=== PATIENT | female | born 1955 | race Caucasian/White ===

== ENCOUNTER → 2017-02-15 | Outpatient (CLI) | payer OTHER ==
[2016-12-21 17:47] VITALS: BP 94/61
[2017-02-15 13:48] LABS: CREATININE 1.19 mg/dL (0.55-1.02)
--- NOTE | 2017-02-15 15:54 | MRI ---
HISTORY: Cervicalgia, radiculopathy, prior surgery Study: MRI cervical spine with and without contrast Comparison: MRI 05/24/2013 Technique: Multiplanar multisequence MRI of the cervical spine was obtained utilizing standard depar tmental protocol. Findings: The exam is limited overall by motion artifact as well as artifact emanating from the patient's cerv ical fusion hardware. Overall alignment is normal. There are postsurgical changes at C4 through C6. Findings suggest revision since prior study is the changes were previously at C4-C5 there appears to be hardware removal at C4. There does not appear to be significant abnormal postsurgical enhancemen t at the C4 thru C6 levels. There is some contrast seen within the venous plexus posteriorly at sammy ral levels, within normal limits. No evidence of acute osseous abnormality or abnormal signal within the cord. The cervical cranial junction is unremarkable as is the visualized brain parenchyma. C2 -- C3: No stenosis or abnormal enhancement identified C3 -- C4: No stenosis or abnormal enhancement identified C4 -- C5: No stenosis or abnormal enhancement identified C5 -- C6: No stenosis or abnormal enhancement identified C6 -- C7: No stenosis or abnormal enhancement identified C7 -- T1: No stenosis or abnormal enhancement identified IMPRESSION: Postsurgical changes spanning C4 through C6 as discussed without evidence of significant stenosis or abnormal enhancement. Reported By:
== END ==
LOC: RAD 13:17
PROVIDERS: ATTEND Anesthesiology Pain Medicine
DX: M54.2 Cervicalgia (principal); M54.12 Radiculopathy, cervical region
CPT/HCPCS: 36415; 72156; 82565; 84520

== ENCOUNTER → 2017-05-11 | Outpatient (CLI) | payer OTHER, MEDICAID ==
[2016-12-21 17:47] VITALS: BP 94/61
--- NOTE | 2017-05-11 15:14 | RAD ---
HISTORY: Shortness of breath, COPD. Study: PA and lateral chest. Comparison: Chest x-ray dated July 17, 2012. Findings: The trachea is midline. The cardiac silhouette is unremarkable. Calcification of the aortic knob. T he lungs are clear without focal infiltrate or effusion. The bony thorax unchanged. IMPRESSION: 1. No acute cardiopulmonary disease. Reported By:
== END ==
LOC: RAD 14:34
PROVIDERS: ATTEND Nurse Practitioner Family
DX: J44.1 Chronic obstructive pulmonary disease with (acute) exacerbation (principal)
CPT/HCPCS: 71020

== ENCOUNTER → 2017-06-29 | Outpatient (CLI) | payer OTHER, MEDICAID ==
[2016-12-21 17:47] VITALS: BP 94/61
== END ==
LOC: RAD 13:18
PROVIDERS: ATTEND Internal Medicine Cardiovascular Disease
DX: I25.10 Atherosclerotic heart disease of native coronary artery without angina pectoris (principal)
CPT/HCPCS: 93306

== ENCOUNTER → 2017-08-15 | Outpatient (CLI) | payer OTHER, MEDICAID ==
[2016-12-21 17:47] VITALS: BP 94/61
[~2017-08-15] MED LIST: LEXISCAN IV ONE
== END ==
LOC: RAD 09:15
PROVIDERS: ATTEND Physician Assistant
DX: I25.10 Atherosclerotic heart disease of native coronary artery without angina pectoris (principal)
CPT/HCPCS: 78452; 93017; A4222; A9502; J2785

== ENCOUNTER → 2018-04-19 | Outpatient (CLI) | payer OTHER, MEDICAID ==
[2016-12-21 17:47] VITALS: BP 94/61
[2018-04-19 15:32] LABS: CREATININE 1.21 mg/dL (0.55-1.02)
--- NOTE | 2018-04-19 22:15 | MRI ---
HISTORY: Lumbar radiculopathy. Low back pain with numbness and pain in legs. Study: MR lumbar spine with and without IV contrast. Comparison: None. Technique: Multiplanar multi-sequence MRI of the lumbar spine obtained both prior to and after the un eventful administration of 20 cc of Omniscan intravenous contrast. Findings: The lumbar spine demonstrates normal sagittal alignment with multilevel degenerative disc d isease. There are Modic endplate changes at the level of L2-L3 without abnormal enhancement on postco ntrast imaging. The conus of the cord terminates normally at the level of T12-L1. There are fatty at rophic changes of the posterior paraspinal musculature most notable below the level of L2-L3. T12 -- L1: No significant degenerative disc disease or spinal canal/neural foraminal narrowing. L1 -- L2: Disc bulge with mild ligamentum flavum hypertrophy and facet joint arthropathy. There is mi ld narrowing of the neural foramen on the right and of both lateral recesses. L2 -- L3: Disc bulge with disc space narrowing and Modic endplate changes, right greater than left. T here is ligamentum flavum hypertrophy and facet joint arthropathy, right greater than left. Findings result in mild neural foraminal narrowing on the left and moderate to severe neural foraminal narrowi ng on the right. There is narrowing of both lateral recesses, right greater than left, with impingeme nt of the traversing L3 nerve roots on the right. The AP diameter of the spinal canal on the right me asures 4 mm. L3 -- L4: Disc bulge which in combination with bilateral ligamentum flavum hypertrophy and facet join t arthropathy results in severe spinal canal narrowing, right greater than left. The AP diameter of t he central spinal canal measures 4.5 mm. There is crowding of the nerve roots with likely nerve root impingement on the right. Minimal CSF is observed at this level. There is mild bilateral neural naveed inal narrowing. L4 -- L5: Disc bulge in combination with bilateral ligamentum flavum hypertrophy and facet joint arth ropathy results in mild narrowing of the lateral recesses and neural foramina bilaterally. L5 -- S1: Mild disc desiccation and right foraminal disc protrusion which results in mild neural fora cynthia narrowing on the right. Small focus of T2 hyperintensity is noted in the region of disc protrus ion compatible with an annular fissure. IMPRESSION: Multilevel degenerative disc disease most severe at L2-L3 and L3-L4 where there is significant spinal canal and neural foraminal narrowing as above. Fatty atrophic changes of the posterior paraspinal musculature below the level of L2-L3. Reported By:
== END | disposition home or self-care (01) | DRG 552 ==
LOC: RAD 15:04
PROVIDERS: ATTEND Anesthesiology Pain Medicine
DX: M54.16 Radiculopathy, lumbar region (principal); M54.5 Low back pain; M51.36 Other intervertebral disc degeneration, lumbar region
CPT/HCPCS: 36415; 72158; 82565; 84520

== ENCOUNTER 2021-08-13 13:51 | Observation (INO) ==
--- NOTE | 2021-08-13 14:15 | DR.GENAD ---
HPI Time Seen Time Seen by Provider: 08/13/21 14:10 Complaint/Symptoms Chief Complaint Doctors Comments: 65 y/o female brought in for evaluation by EMS. PT has been having generalized weakness this am, cannot stand easily or ambulate. Denies any headache or trauma. Denies recent illness - no fever, c hills, cough, N/V/D, or urinary issues. Has weakness of both legs. Pt has been having some muscles twitching, remains awake and alert, no true seizure activity. Daughter encouraged her to come in for evaluation. Pt with a h/o dementia, recent h/o lung ca, awaiting further evaluation. COVID-19 Coronavirus risk:travel/contact w/high risk person: No Has patient experienced Coronavirus symptoms: No Nurses notes reviewed Nurses Notes Review: Yes Source History Provided: Patient and EMS Mode of Arrival Mode of Arrival: EMS Timing Came on: Gradually Duration Duration: Since Onset How lon Duration: Days Severity Severity: Mild Modifying Factors Worsens:: nothing Improves:: nothing PMH PMH Past Medical History: Arthritis, COPD, Depression, Diabetes, Dyslipidemia, GERD, Hypertension, [place] and Sleep Apnea Past Surgical History: Yes Surgical History: Hysterectomy and Ortho Surgery Family History Family Medical History: Diabetes Mellitus, Cancer and Hypertension Social History Do you use any recreational Drugs:: No ROS Review of Systems Constitutional: Weakness; negative Chills and Fever Eyes: No Symptoms Reported; negative Blurred Vision and Diplopia ENTM: No Symptoms Reported Respiratoy: No Symptoms Reported Cardiovascular: No Symptoms Reported Gastrointestinal/Abdominal: No Symptoms Reported Genitourinary: No Symptoms Reported Neurological: Tremors Musculoskeletal: No Symptoms Reported Integumentary: No Symptoms Reported Hematologic/Lymphatic: No Symptoms Reported Endocrine: No Symptoms Reported Psychiatric: No Symptoms Reported All Other Systems: Reviewed and Negative PE Vital Signs Vitals: Temperature 100.6 F Pulse Rate 121 Respiratory Rate 31 Blood Pressure [Left Arm] 115/68 Blood Pressure 113/63 O2 Sat by Pulse Oximetry 90 General Limitations: No Limitations General Appearance: Alert and In No Apparent Distress Head Head Exam: Normal Inspection, Atraumatic and Normocephalic Eyes Eye exam: Normal Appearance and PERRL ENT ENT Exam: Normal Exam Throat Exam: Normal Inspection Neck Neck Exam: Normal Inspection and Full ROM; negative Meningismus Chest Chest Inspection: Normal Inspection Respiratory Respiratory Exam: Normal Lung Sounds Bilat; negative Accessory Muscle Use and Respiratory Distress Respiratory Exam: Bilateral: Clear to Auscultation Cardiovascular Cardiovascular Exam: Regular Rate, Normal Rhythm and Normal Heart Sounds Abdominal Exam Abdominal Exam: Normal Inspection and Normal Bowel Sounds; negative Tenderness Extremities Extremities Exam: Normal Inspection; negative Edema Neurologic Neurological Exam: Alert and Other (+ weakness of bilateral lower exts, LLE > RLE) Psychiatric Psychiatric Exam: Normal Affect Skin Skin Exam: Warm and Dry MDM Differential Diagnosis Differential Diagnosis: Infection, CVA, electrolyte abnormalites, recent lung ca, possible mets. COURSE Treatment Treatment: 65 y/o female, having weakness of her legs, twitching. W/u initiated. 1620 - CBC, Chemistries acceptable. CT of the head shows probable lytic, probable metastatic lesions of left skull. Pt has appt next month to establish with pulmonary for possible ca. Deserves admission, quicker w/u as now she has bilateral lower ext weakness. possible mets. Also has a UTI - given IV rocephin. Added lactic acid, blood cultures, as pt is spiking a fever. No beds available for transfer. Discussed with DR. Esparza, hospitalist. Will admit. ROR Labs Reviewed Laboratory Results Reviewed?: Yes Result Diagrams: 08/13/21 14:54 08/13/21 14:54 Laboratory: WBC 12.1 X10^3/uL (3.6-10.0) H 08/13/21 14:54 RBC 4.13 X10^6/uL (3.5-5.4) 08/13/21 14:54 Hgb 11.4 g/dL (12.0-16.0) L 08/13/21 14:54 Hct 35.7 % (36.0-47.0) L 08/13/21 14:54 MCV 86.4 fL (80.0-100.0) 08/13/21 14:54 MCH 27.5 pg (27.0-34.0) 08/13/21 14:54 MCHC 31.9 g/dL (33.0-35.0) L 08/13/21 14:54 RDW 15.8 % (11.6-16.5) 08/13/21 14:54 Plt Count 267 X10^3/uL (150.0-450.0) 08/13/21 14:54 MPV 8.2 fL (7.4-11.0) 08/13/21 14:54 Neut % (Auto) 85.4 % (42.0-75.0) H 08/13/21 14:54 Lymph % (Auto) 6.9 % (21.0-51.0) L 08/13/21 14:54 [place] % (Auto) 5.9 % (0.0-13.0) 08/13/21 14:54 Eos % (Auto) 0.9 % (0.9-2.9) 08/13/21 14:54 Baso % (Auto) 0.9 % (0.2-1.0) 08/13/21 14:54 Neut # (Auto) 10.3 x10^3/uL (2.2-4.8) H 08/13/21 14:54 Lymph # (Auto) 0.8 X10^3/uL (1.3-2.9) L 08/13/21 14:54 [place] # (Auto) 0.7 x10^3/uL (0.3-0.8) 08/13/21 14:54 Eos # (Auto) 0.1 x10^3/uL (0.0-0.2) 08/13/21 14:54 Baso # (Auto) 0.1 X10^3/uL (0.0-0.1) 08/13/21 14:54 Absolute Nucleated RBC 0.0 /100WBC 08/13/21 14:54 Sodium 135 mmol/L (136-145) L 08/13/21 14:54 Corrected Sodium 136 mmol/L (136-145) 08/13/21 14:54 Potassium 4.2 mmol/L (3.5-5.1) 08/13/21 14:54 Chloride 94 mmol/L (98-107) L 08/13/21 14:54 Carbon Dioxide 39.7 mmol/L (21-32) H 08/13/21 14:54 BUN 8 mg/dL (7-18) 08/13/21 14:54 Creatinine 0.78 mg/dL (0.55-1.02) 08/13/21 14:54 Est GFR (MDRD) Af Amer > 60 (>60) 08/13/21 14:54 Est GFR (MDRD) Non-Af > 60 (>60) 08/13/21 14:54 Glucose 121 mg/dL (65-99) H 08/13/21 14:54 Calcium 10.2 mg/dL (8.5-10.1) H 08/13/21 14:54 Corrected Calcium 11.4 mg/dL (8.5-10.1) H 08/13/21 14:54 Phosphorus 4.8 mg/dL (2.6-4.7) H 08/13/21 14:54 Magnesium 1.7 mg/dL (1.7-2.9) 08/13/21 14:54 Total Bilirubin 0.30 mg/dL (0.2-1.0) 08/13/21 14:54 AST 23 Units/L (15-37) 08/13/21 14:54 ALT 13 Units/L (12-78) 08/13/21 14:54 Alkaline Phosphatase 99 Units/L (46-116) 08/13/21 14:54 Creatine Kinase 22 Units/L (26-192) L 08/13/21 14:54 CK-MB (CK-2) < 1.0 ng/mL (0-4.0) 08/13/21 14:54 CK/CKMB % Calc 4.6 % (<4) 08/13/21 14:54 Troponin I < 0.02 ng/mL (0-1.5) 08/13/21 14:54 B-Natriuretic Peptide 35.1 pg/mL (0-79) 08/13/21 14:54 Total Protein 7.9 g/dL (6.4-8.2) 08/13/21 14:54 Albumin 2.5 g/dL (3.4-5.0) L 08/13/21 14:54 Globulin 5.4 g/dL (2.5-4.5) H 08/13/21 14:54 Albumin/Globulin Ratio 0.5 Ratio (1.1-2.1) L 08/13/21 14:54 Specimen Type Catherized urine 08/13/21 15:25 Urine Color Straw (YELLOW) 08/13/21 15:25 Urine Appearance Cloudy (CLEAR) 08/13/21 15:25 Urine pH 6.0 (5.0 - 8.0) 08/13/21 15:25 Ur Specific Mcloud 1.015 (1.000-1.030) 08/13/21 15:25 Urine Protein 1+ (NEGATIVE) 08/13/21 15:25 Urine Glucose (UA) Negative (NEGATIVE) 08/13/21 15:25 Urine Ketones Negative (NEGATIVE) 08/13/21 15:25 Urine Occult Blood 1+ (NEGATIVE) 08/13/21 15:25 Urine Nitrite Positive (NEGATIVE) 08/13/21 15:25 Urine Bilirubin Negative (NEGATIVE) 08/13/21 15:25 Urine Urobilinogen Normal (NORMAL) 08/13/21 15:25 Ur Leukocyte Esterase 2+ (NEGATIVE) 08/13/21 15:25 Urine RBC 5-10 /HPF (0-3) A 08/13/21 15:25 Urine WBC 30-50 /HPF (0-5) A 08/13/21 15:25 Ur Squamous Epith Cells Numerous /HPF (NEGATIVE) 08/13/21 15:25 Amorphous Sediment 2+ /HPF (NEGATIVE) 08/13/21 15:25 Urine Bacteria 4+ /HPF (NEGATIVE) 08/13/21 15:25 Ur Culture Indicated? Yes/culture set up 08/13/21 15:25 SARS CoV-2 RNA Rapid MICKEY Negative (NEGATIVE) 08/13/21 15:01 XRAY XRAY Interpreted by: Radiologist X-ray Results: CT with 2 lytic lesions of left parietal/frontal region. CXR without acute abnormalities. EKG Rate: 117 [place]: RAD Rhythm: ST Block: RBBB (with LPFB) Hypertrophy: LAE ST: Nonsp Opioid Opioid Risk Tool Age (Kaveh box if 16-45): No History of Preadolescent Sexual Abuse: No Total: 0 Total Score Risk Category: Low Risk Copyright: Raman WALTER predicting aberrant behaviors Diagnosis Discharge Problem: Metastatic carcinoma, Altered mental status, Acute UTI
[2021-08-13] MEDS ORDERED: NS 500 ML IV 500 ML IV ONE ×2 (14:17→15:07)
[2021-08-13 15:03] LABS: BASOPHILS # (AUTO) 0.1 X10^3/uL (0.0-0.1); BASOPHILS % (AUTO) 0.9 % (0.2-1.0); EOSINOPHILS # (AUTO) 0.1 x10^3/uL (0.0-0.2); EOSINOPHILS % (AUTO) 0.9 % (0.9-2.9); HEMATOCRIT 35.7 % (36.0-47.0); HEMOGLOBIN 11.4 g/dL (12.0-16.0); LYMPHOCYTES # (AUTO) 0.8 X10^3/uL (1.3-2.9); LYMPHOCYTES % (AUTO) 6.9 % (21.0-51.0); MEAN CORPUSCULAR HEMOGLOBIN 27.5 pg (27.0-34.0); MEAN CORPUSCULAR HGB CONC 31.9 g/dL (33.0-35.0); MEAN CORPUSCULAR VOLUME 86.4 fL (80.0-100.0); MEAN PLATELET VOLUME 8.2 fL (7.4-11.0); MONOCYTES # (AUTO) 0.7 x10^3/uL (0.3-0.8); MONOCYTES % (AUTO) 5.9 % (0.0-13.0); NEUTROPHILS # (AUTO) 10.3 x10^3/uL (2.2-4.8); NEUTROPHILS % (AUTO) 85.4 % (42.0-75.0); PLATELET COUNT 267 X10^3/uL (150.0-450.0); RED BLOOD COUNT 4.13 X10^6/uL (3.5-5.4); RED CELL DISTRIBUTION WIDTH 15.8 % (11.6-16.5); WHITE BLOOD COUNT 12.1 X10^3/uL (3.6-10.0)
--- NOTE | 2021-08-13 15:06 | RAD ---
CHEST, 1 VIEWHISTORY:ANTONIO LOWER EXT WEAKNESS, INVOLUNTARY TREMORSStudy: Single view of the chest.Comparison:NoneFindings:Cardiomegaly and pulmonary vascular congestion. No focal consolidations, pleural effusions or pneumothorax. Osseous structures demonstrate no acute abnormality.IMPRESSION:1. Cardiomegaly and pulmonary vascular congestion.Electronically signed by: MARCIAL LANDIN (Aug 13, 2021 15:04:56)
[2021-08-13 15:28] LABS: ALANINE AMINOTRANSFERASE 13 Units/L (12-78); ALBUMIN 2.5 g/dL (3.4-5.0); ALKALINE PHOSPHATASE 99 Units/L (46-116); ASPARTATE AMINO TRANSFERASE 23 Units/L (15-37); BLOOD UREA NITROGEN 8 mg/dL (7-18); CALCIUM 10.2 mg/dL (8.5-10.1); CARBON DIOXIDE 39.7 mmol/L (21-32); CHLORIDE 94 mmol/L (98-107); CKMB % 4.6 % (<4); COR CA(FOR HYPOALB) 11.4 mg/dL (8.5-10.1); COR NA(FOR HYPERGLY) 136 mmol/L (136-145); CREATINE KINASE 22 Units/L (26-192); CREATINE KINASE MB < 1.0 ng/mL (0-4.0); CREATININE 0.78 mg/dL (0.55-1.02); SODIUM 135 mmol/L (136-145); TOTAL PROTEIN 7.9 g/dL (6.4-8.2); TROPONIN I < 0.02 ng/mL (0-1.5); eGFR NON BLACK RACES > 60 (>60)
[2021-08-13 15:39] LABS: BILIRUBIN,URINE NEGATIVE (NEGATIVE); BLOOD/HEMOGLOBIN,URINE 1+ (NEGATIVE); GLUCOSE, URINE NEGATIVE (NEGATIVE); KETONES,URINE NEGATIVE (NEGATIVE); LEUKOCYTE ESTERASE ,URINE 2+ (NEGATIVE); NITRITES,URINE POSITIVE (NEGATIVE); PROTEIN,URINE 1+ (NEGATIVE); UROBILINOGEN,URINE NORMAL (NORMAL)
--- NOTE | 2021-08-13 15:45 | CT ---
HISTORYBIL LOWER EXT WEAKNESS, INVOLUNTARY TREMORSSTUDYBRAIN W/O CONCOMPARISONCT head without contrast, August 14, 2018TECHNIQUEAxial non-contrast images of the head were obtained with coronal and sagittal reformats provided.Radiation dose: 1400.40 mGy-cm total DLPFINDINGSInterval development of 2 lytic foci in the anterior superior left parietal/frontal region measuring 4.3 x 4.3 x 1.8 cm and 2.1 x 0.9 x 2.0 cm.No abnormal areas of acute attenuation in the brain parenchyma.Newton-white differentiation remains intact.No intracranial, extra-axial, fluid collection.No hemorrhage.Periventricular chronic microvascular disease.No mass, mass effect or midline shift.Age related brain parenchymal global atrophy.No ventriculomegaly.No acute fracture.Sinuses are well aerated.Mastoid air cells are well aerated.Globes and intra-orbital contents are unremarkable.IMPRESSIONNo acute intracranial abnormality identified.Interval development of 2 lytic foci in the anterior superior left parietal/frontal region measuring 4.3 x 4.3 x 1.8 cm and 2.1 x 0.9 x 2.0 cm. Findings could represent metastatic disease. Further evaluation could include a nuclear medicine bone scan, MRI with and without contrast or CT-PET.Electronically signed by: Clayton Valencia (Aug 13, 2021 15:43:34)
[2021-08-13 15:50] LABS: APPEARANCE,URINE CLOUDY (CLEAR); COLOR,URINE STRAW (YELLOW)
[2021-08-13 15:51] LABS: AMORPHOUS SEDIMENT,UR 2+ /HPF (NEGATIVE); BACTERIA,URINE 4+ /HPF (NEGATIVE); SQUAMOUS EPITHELIAL CELL,UR NUMEROUS /HPF (NEGATIVE)
[2021-08-13 15:51] LABS: MAGNESIUM 1.7 mg/dL (1.7-2.9); PHOSPHORUS 4.8 mg/dL (2.6-4.7)
[2021-08-13] MEDS ORDERED: ROCEPHIN VIAL 1 GRAM 1 G in NS 100 ML IV + SPIKE MINIBAG* 100 ML IV ONE ×2 (16:25→17:02)
[2021-08-13] MEDS ORDERED: ROCEPHIN 1 GRAM IV PREMIX 1 G/50 ML IV.SOLN. IV ONE (17:04)
[2021-08-13] MEDS ORDERED: TYLENOL 500 MG TAB EXTRA STRENGTH PO ONE ×2 (17:09→17:10)
[2021-08-13] MEDS ORDERED: NS 1000 ML 1,000 ML ONE (19:21)
[2021-08-13] MEDS: NS 1000 ML 1,000 ML IV SCH (19:24)
[2021-08-13] MEDS ORDERED: LYRICA CAP 150 mg PO ONE (20:41)
[2021-08-13] MEDS ORDERED: SEROquel TAB 25 mg PO ONE (20:42)
[2021-08-13] MEDS ORDERED: ELIQUIS ONE (20:42)
[2021-08-13] MEDS ORDERED: REQUIP PO ONE (20:42)
[2021-08-13] MEDS ORDERED: GLUCOPHAGE ONE (20:42)
[2021-08-13] MEDS: LYRICA CAP 150 mg PO SCH (21:00)
[2021-08-13] MEDS: GLUCOPHAGE PO SCH (21:00)
[2021-08-13] MEDS: SEROquel TAB 25 mg PO PRN (21:00)
[2021-08-13] MEDS: ELIQUIS PO SCH (21:00)
[2021-08-13] MEDS: REQUIP PO SCH (21:00)
[2021-08-13] MEDS: SINEquan PO SCH (22:42)
[2021-08-14 00:20] VITALS: BMI 34.9
[2021-08-14] MEDS ORDERED: VALIUM INJ IVP ONE (00:42)
[2021-08-14] MEDS ORDERED: VALIUM INJ ONE (00:44)
[2021-08-14] MEDS: NS 1000 ML 1,000 ML IV SCH ×2 (06:46→21:00)
[2021-08-14 07:17] LABS: BASOPHILS % (AUTO) 0.3 % (0.2-1.0); EOSINOPHILS # (AUTO) 0.1 x10^3/uL (0.0-0.2); EOSINOPHILS % (AUTO) 0.7 % (0.9-2.9); HEMATOCRIT 31.4 % (36.0-47.0); HEMOGLOBIN 10.1 g/dL (12.0-16.0); LYMPHOCYTES # (AUTO) 0.9 X10^3/uL (1.3-2.9); LYMPHOCYTES % (AUTO) 8.6 % (21.0-51.0); MEAN CORPUSCULAR HEMOGLOBIN 27.3 pg (27.0-34.0); MEAN CORPUSCULAR HGB CONC 32.1 g/dL (33.0-35.0); MEAN CORPUSCULAR VOLUME 85.2 fL (80.0-100.0); MEAN PLATELET VOLUME 8.5 fL (7.4-11.0); MONOCYTES # (AUTO) 0.7 x10^3/uL (0.3-0.8); MONOCYTES % (AUTO) 6.9 % (0.0-13.0); NEUTROPHILS # (AUTO) 8.3 x10^3/uL (2.2-4.8); NEUTROPHILS % (AUTO) 83.5 % (42.0-75.0); PLATELET COUNT 256 X10^3/uL (150.0-450.0); RED BLOOD COUNT 3.68 X10^6/uL (3.5-5.4); RED CELL DISTRIBUTION WIDTH 15.8 % (11.6-16.5)
[2021-08-14 07:27] LABS: ALANINE AMINOTRANSFERASE 10 Units/L (12-78); ALBUMIN 2.2 g/dL (3.4-5.0); ALKALINE PHOSPHATASE 90 Units/L (46-116); ASPARTATE AMINO TRANSFERASE 20 Units/L (15-37); BLOOD UREA NITROGEN 7 mg/dL (7-18); CALCIUM 9.8 mg/dL (8.5-10.1); CHLORIDE 96 mmol/L (98-107); COR CA(FOR HYPOALB) 11.2 mg/dL (8.5-10.1); SODIUM 139 mmol/L (136-145); TOTAL PROTEIN 7.3 g/dL (6.4-8.2); eGFR NON BLACK RACES > 60 (>60)
[2021-08-14 07:53] LABS: CARBON DIOXIDE 40.6 mmol/L (21-32)
[2021-08-14] MEDS ORDERED: ELIQUIS ONE (08:10)
[2021-08-14] MEDS ORDERED: REQUIP PO ONE (08:10)
[2021-08-14] MEDS: GLUCOPHAGE PO SCH ×2 (08:39→21:01)
[2021-08-14] MEDS: ELIQUIS PO SCH ×2 (08:39→21:01)
[2021-08-14] MEDS: REQUIP PO SCH ×2 (08:39→21:01)
[2021-08-14] MEDS ORDERED: LASIX ONE (08:41)
[2021-08-14] MEDS ORDERED: ROCEPHIN 1 GRAM IV PREMIX 1 G/50 ML IV.SOLN. IV ONE (08:41)
[2021-08-14] MEDS: ROCEPHIN VIAL 1 GRAM 1 G in NS 100 ML IV + SPIKE MINIBAG* 100 ML IV SCH ×2 (08:43)
[2021-08-14] MEDS ORDERED: LASIX IVP SCH (09:00)
[2021-08-14] MEDS ORDERED: NS 100 ML IV 100 ML ONE (09:29)
--- NOTE | 2021-08-14 10:55 | CT ---
HISTORYMetastatic disease, AMS, UTISTUDYCT brain without and with IV contrastCOMPARISONCT 08/13/2021 and MRI 01/1915TECHNIQUEMultiple axial images of the brain were obtained without and with IV contrast. Dose reduction techniques including Automated Exposure Control (AEC) and adjustment of mA and kV were utilized.FINDINGSThe lytic lesions are identified in the left frontal bone. These lesions enhance and are likely large lytic metastases. Soft tissue component of the larger metastasis extends slightly intracranially without significant mass effect. This lesion measures approximately 3.8 x 1.7 cm.There are other lucencies in the occipital skull that are probably chronic and appear to be osseous dural defects and possible lipoma given signal characteristics on 2015 MRI. There is moderate diffuse volume loss in the brain with compensatory enlargement of the ventricular system. No acute intracranial hemorrhage is seen. No brain parenchymal mass is identified.IMPRESSIONLytic metastases are seen in the left frontal bone. The larger metastasis as soft tissue breakthrough intracranially without significant mass effect. It measures 3.8 x 1.7 cm.No brain parenchymal metastases are seen.Electronically signed by: Andrew Amador (Aug 14, 2021 10:53:19)
--- NOTE | 2021-08-14 10:59 | CT ---
HISTORYbone metastases, AMS, UTISTUDYTHORACIC SPINE without IV contrastCOMPARISONChest CT 10/09/2019TECHNIQUEMultiple axial images of the thoracic spine were obtained without administration of IV contrast. Sagittal and coronal reformats were performed and reviewed. Dose reduction techniques including Automated Exposure Control (AEC) and adjustment of mA and kV were utilized.FINDINGSPrior fusion in the lower cervical spine. No compression fracture or subluxation. No obvious lytic metastases are seen in the thoracic spine. Recommend nuclear medicine bone scan for increased sensitivity in detection of bone metastases. Masses are seen in the left perihilar region and left lower lobe of the lungs likely due to lung cancer. No significant thoracic spondylosis is seen. Probable metastases in the both adrenal glands.IMPRESSIONLeft-sided lung cancer is suspected. Probable adrenal metastases.No definite bony metastases are seen. Recommend nuclear medicine bone scan for increased sensitivity in detection of bone metastases.Electronically signed by: Andrew Amador (Aug 14, 2021 10:57:49)
--- NOTE | 2021-08-14 11:04 | CT ---
HISTORYLung cancer bone metastasesSTUDYCT lumbar spine without IV contrastCOMPARISONCT 05/08/2021TECHNIQUEMultiple axial images of the lumbar spine were obtained from the thoracolumbar junction to the sacrum without the administration of IV contrast. Sagittal and coronal reformats were performed and reviewed. Dose reduction techniques including Automated Exposure Control (AEC) and adjustment of mA and kV were utilized.FINDINGSNo obvious bony metastases are seen. Recommend nuclear medicine bone scan for increased sensitivity in detection of bone metastases. No compression fracture is seen. Diffuse arthritic facet changes are seen, greatest in the lower lumbar spine. Mild associated spondylolisthesis is seen at L3-4. No pars defects are seen.Likely prominent thecal sac effacement or compression at L2-3 from posterior osteophytes, calcified central disc osteophyte complex, and posterior element hypertrophy. Posterior element hypertrophy and spondylolisthesis cause thecal sac compression and prominent lateral recess stenosis at L3-4. Possible significant but less prominent stenoses are seen at L4-5 and L5-S1.Large bilateral adrenal metastases are suspected measuring approximately 6.1 cm in greatest dimension on the right and 8.2 cm on the left.IMPRESSIONNo definite bony metastases are seen but recommend further evaluation with nuclear medicine bone scan.Prominent chronic lumbar spondylosis.Large adrenal metastases are suspected. Probable left perihilar lung cancer is seen on CT thoracic spine from same day.Electronically signed by: Andrew Amador (Aug 14, 2021 11:02:04)
--- NOTE | 2021-08-14 14:11 | DR.H&P ---
H&P - History & Physical for Day of: H&P Date: 08/13/21 - Chief Complaint Chief Complaint: WEAKNESS, AMS - History of Present Illness History of Present Illness: 65 y/o female brought in for evaluation by EMS. PT has been having generalized weakness this am, cannot stand easily or ambulate. Denies any headache or trauma. Pt has hx of COPD, HTN, OA, AND DEMENTIA. PTS SPOUSE RECENTLY PASSED FROM COVID 19. SHE WAS IN A REHAB FACILTY FOLLOWING FALL WITH HIP FRACTURE. PT ADMITTED FOR TREATMENT AND EVALUATION OF ACUTE ILLNESS. - Past Medical History Past Medical History: [place], Hypertension, Dyslipidemia, Diabetes, Depression, COPD, GERD, Arthritis, Sleep Apnea - Past Surgical History Surgical History: Hysterectomy, Ortho Surgery - Family History Family Medical History: Diabetes Mellitus, Cancer, Hypertension - Social History Does patient currently use any type of tobacco product: Yes Type of Tobacco Use: Cigarettes Alcohol Use: None Drug Use: None - Medications Home Medications: No Known Drug Allergies Allergy (Verified 05/08/21 19:47) CONTINUE taking the following medications apixaban [Eliquis] 5 mg PO BID 08/13/21 [History] aspirin 81 mg PO DAILY 08/13/21 [History] doxepin 10 mg PO HS 08/13/21 [History] potassium 99 mg PO DAILY 08/13/21 [History] pregabalin 150 mg PO HS 08/13/21 [History] quetiapine 12.5 mg PO HS PRN 08/13/21 [History] ropinirole 1 mg PO BID 08/13/21 [History] zolpidem 5 mg PO QHS PRN 08/13/21 [History] - Review of Systems Constitutional: Weakness, Malaise Eyes: No Symptoms Reported Respiratory: Shortness of Breath, SOB with Excertion, Wheezing Cardiovascular: No Symptoms Reported Gastrointestinal: Nausea Genitourinary: Frequency Musculoskeletal: Back Pain, Leg Pain Skin: No Symptoms Reported Neurological: Weakness, Confusion - Physical Exam Vital Signs: Temperature 98.1 F Pulse Rate [Apical] 96 Pulse Rate 105 Respiratory Rate 22 Blood Pressure [Left Arm] 95/52 Blood Pressure 124/61 O2 Sat by Pulse Oximetry 94 Oriented: Not Oriented Eyes: Normal Ear: Normal Nose: Normal Throat: Dry Respiratory: RML Diminished, RLL Diminished, LML Diminished, LLL Diminished Cardiovascular: Tachycardia : Normal Auscultation: Bowel Sounds: Normal Palpation: Normal Tenderness: Normal Skin: Decreased Turgur Musculoskeletal: Sensory Deficit, Instability Psychiatric: Anxiety Mood Description: Anxious Affect: Anxious Speech Pattern: Inappropriate (BOTH INAPPROPRIATE RESPONSES) - Assessment/Plan (1) AMS (altered mental status) Status: Acute Plan: ADMIT, CT HEAD ON ADMISSION. OBTAIN LABS, EKG AND RESP CONSULT. IV HYDRATION, STRICT I&OS. CARDIAC MONITORING, ABG ON ADMISSION. VERIFY HOME MEDICATIONS (2) Uncontrolled diabetes mellitus Status: Acute (3) COPD with chronic bronchitis Status: Acute (4) Metastatic carcinoma Status: Acute (5) Acute UTI Status: Acute - Allergies Allergies/Adverse Reactions: Allergies Allergy/AdvReac Type Severity Reaction Status Date / Time No Known Drug Allergies Allergy Verified 05/08/21 19:47
--- NOTE | 2021-08-14 14:16 | PCM.PROG ---
Progress Note - Progress Note for Day of Date of Exam: 08/14/21 - Subjective Subjective: PT IS 65 WF ER ADMISSION WITH INCREASED AMS AND WEAKNESS. PT HAD LUNG MASS WITH METS CONFIRMED WITH CT HEAD. PT HAS CHRONIC VASCULAR DEMENTIA AND GORGE WITH HAS BECAME SEVERE IN PAST FEW DAYS. PT HAD UTI, CURRENTLY ON ROCEPHIN. CULTURES OBTAINED ON ADMISSION ARE PENDING. PT COVID - ON ADMISSION, PRN PAIN CONTROL CONTINUED AND RESP THERAPY WITH SUPPLEMENTAL O2 - Past Medical Family Social History Past Med/Fam/Surg Hx: No changes since H&P Allergies: Allergies No Known Drug Allergies Allergy (Verified 05/08/21 19:47) - Review of Systems ROS: No change since H&P - Vital Signs and I&O's Vital Signs: Temperature 98.1 F Pulse Rate [Apical] 96 Pulse Rate 105 Respiratory Rate 22 Blood Pressure [Left Arm] 95/52 Blood Pressure 124/61 O2 Sat by Pulse Oximetry 94 Intake and Output: Intake & Output 08/12/21 08/13/21 08/14/21 08/15/21 11:59 11:59 11:59 11:59 Intake Total 1614 / 1614 Output Total 1250 / 1250 Balance 364 / 364 - Physical Exam Oriented: Not Oriented Eyes: Normal Ear: Normal Nose: Normal Throat: Dry Respiratory: Diminished, Wheezes Cardiovascular: Tachycardia : Normal Auscultation: Bowel Sounds: Normal Tenderness: Normal Skin: Decreased [place] Musculoskeletal: Sensory Deficit, Instability Psychiatric: Anxiety Mood Description: Anxious Affect: Anxious Speech Pattern: Inappropriate (BOTH INAPPROPRIATE RESPONSES) - Laboratory and Diagnostics Result Diagrams: 08/14/21 05:59 08/14/21 05:59 Labs: 08/13/21 15:25 Urine,Catheterized Urine Culture - Preliminary Laboratory WBC 10.0 X10^3/uL (3.6-10.0) 08/14/21 05:59 RBC 3.68 X10^6/uL (3.5-5.4) 08/14/21 05:59 Hgb 10.1 g/dL (12.0-16.0) L 08/14/21 05:59 Hct 31.4 % (36.0-47.0) L 08/14/21 05:59 MCV 85.2 fL (80.0-100.0) 08/14/21 05:59 MCH 27.3 pg (27.0-34.0) 08/14/21 05:59 MCHC 32.1 g/dL (33.0-35.0) L 08/14/21 05:59 RDW 15.8 % (11.6-16.5) 08/14/21 05:59 Plt Count 256 X10^3/uL (150.0-450.0) 08/14/21 05:59 MPV 8.5 fL (7.4-11.0) 08/14/21 05:59 Neut % (Auto) 83.5 % (42.0-75.0) H 08/14/21 05:59 Lymph % (Auto) 8.6 % (21.0-51.0) L 08/14/21 05:59 [place] % (Auto) 6.9 % (0.0-13.0) 08/14/21 05:59 Eos % (Auto) 0.7 % (0.9-2.9) L 08/14/21 05:59 Baso % (Auto) 0.3 % (0.2-1.0) 08/14/21 05:59 Neut # (Auto) 8.3 x10^3/uL (2.2-4.8) H 08/14/21 05:59 Lymph # (Auto) 0.9 X10^3/uL (1.3-2.9) L 08/14/21 05:59 [place] # (Auto) 0.7 x10^3/uL (0.3-0.8) 08/14/21 05:59 Eos # (Auto) 0.1 x10^3/uL (0.0-0.2) 08/14/21 05:59 Baso # (Auto) 0.0 X10^3/uL (0.0-0.1) 08/14/21 05:59 Absolute Nucleated RBC 0.1 /100WBC 08/14/21 05:59 Sodium 139 mmol/L (136-145) 08/14/21 05:59 Corrected Sodium TNP 08/14/21 05:59 Potassium 3.8 mmol/L (3.5-5.1) 08/14/21 05:59 Chloride 96 mmol/L (98-107) L 08/14/21 05:59 Carbon Dioxide 40.6 mmol/L (21-32) H* 08/14/21 05:59 BUN 7 mg/dL (7-18) 08/14/21 05:59 Creatinine 0.60 mg/dL (0.55-1.02) 08/14/21 05:59 Est GFR (MDRD) Af Amer > 60 (>60) 08/14/21 05:59 Est GFR (MDRD) Non-Af > 60 (>60) 08/14/21 05:59 Glucose 106 mg/dL (65-99) H 08/14/21 05:59 POC Glucose (mg/dL) 166 mg/dL (65-99) H 08/14/21 12:14 Lactic Acid 1.3 mmol/L (0.4-2.0) 08/13/21 17:22 Calcium 9.8 mg/dL (8.5-10.1) 08/14/21 05:59 Corrected Calcium 11.2 mg/dL (8.5-10.1) H 08/14/21 05:59 Phosphorus 4.8 mg/dL (2.6-4.7) H 08/13/21 14:54 Magnesium 1.7 mg/dL (1.7-2.9) 08/13/21 14:54 Total Bilirubin 0.30 mg/dL (0.2-1.0) 08/14/21 05:59 AST 20 Units/L (15-37) 08/14/21 05:59 ALT 10 Units/L (12-78) L 08/14/21 05:59 Alkaline Phosphatase 90 Units/L (46-116) 08/14/21 05:59 Creatine Kinase 22 Units/L (26-192) L 08/13/21 14:54 CK-MB (CK-2) < 1.0 ng/mL (0-4.0) 08/13/21 14:54 CK/CKMB % Calc 4.6 % (<4) 08/13/21 14:54 Troponin I < 0.02 ng/mL (0-1.5) 08/13/21 14:54 B-Natriuretic Peptide 35.1 pg/mL (0-79) 08/13/21 14:54 Total Protein 7.3 g/dL (6.4-8.2) 08/14/21 05:59 Albumin 2.2 g/dL (3.4-5.0) L 08/14/21 05:59 Globulin 5.1 g/dL (2.5-4.5) H 08/14/21 05:59 Albumin/Globulin Ratio 0.4 Ratio (1.1-2.1) L 08/14/21 05:59 Specimen Type Catherized urine 08/13/21 15:25 Urine Color Straw (YELLOW) 08/13/21 15:25 Urine Appearance Cloudy (CLEAR) 08/13/21 15:25 Urine pH 6.0 (5.0 - 8.0) 08/13/21 15:25 Ur Specific [place] 1.015 (1.000-1.030) 08/13/21 15:25 Urine Protein 1+ (NEGATIVE) 08/13/21 15:25 Urine Glucose (UA) Negative (NEGATIVE) 08/13/21 15:25 Urine Ketones Negative (NEGATIVE) 08/13/21 15:25 Urine Occult Blood 1+ (NEGATIVE) 08/13/21 15:25 Urine Nitrite Positive (NEGATIVE) 08/13/21 15:25 Urine Bilirubin Negative (NEGATIVE) 08/13/21 15:25 Urine Urobilinogen Normal (NORMAL) 08/13/21 15:25 Ur Leukocyte Esterase 2+ (NEGATIVE) 08/13/21 15:25 Urine RBC 5-10 /HPF (0-3) A 08/13/21 15:25 Urine WBC 30-50 /HPF (0-5) A 08/13/21 15:25 Ur Squamous Epith Cells Numerous /HPF (NEGATIVE) 08/13/21 15:25 Amorphous Sediment 2+ /HPF (NEGATIVE) 08/13/21 15:25 Urine Bacteria 4+ /HPF (NEGATIVE) 08/13/21 15:25 Ur Culture Indicated? Yes/culture set up 08/13/21 15:25 SARS CoV-2 RNA Rapid MICKEY Negative (NEGATIVE) 08/13/21 15:01 - Plan (1) AMS (altered mental status) Status: Acute Plan: CT HEAD ON ADMISSION. OBTAIN LABS, EKG AND RESP CONSULT. IV HYDRATION, STRICT I&OS. CARDIAC MONITORING, ABG ON ADMISSION. BS CONTROL, AM LABS, PAIN CONTROL (2) Uncontrolled diabetes mellitus Status: Acute (3) COPD with chronic bronchitis Status: Acute (4) Metastatic carcinoma Status: Acute (5) Acute UTI Status: Acute
[2021-08-14] MEDS ORDERED: GLUCOPHAGE ONE (20:19)
[2021-08-14] MEDS: AMBIEN PO SCH (21:01)
[2021-08-14] MEDS: LYRICA CAP 150 mg PO SCH (21:01)
[2021-08-14] MEDS: SINEquan PO SCH (21:45)
[2021-08-15 06:18] LABS: BASOPHILS % (AUTO) 0.3 % (0.2-1.0); EOSINOPHILS # (AUTO) 0.1 x10^3/uL (0.0-0.2); HEMATOCRIT 30.9 % (36.0-47.0); LYMPHOCYTES # (AUTO) 0.8 X10^3/uL (1.3-2.9); LYMPHOCYTES % (AUTO) 9.3 % (21.0-51.0); MEAN CORPUSCULAR HEMOGLOBIN 27.6 pg (27.0-34.0); MEAN CORPUSCULAR HGB CONC 32.4 g/dL (33.0-35.0); MEAN CORPUSCULAR VOLUME 85.3 fL (80.0-100.0); MEAN PLATELET VOLUME 8.9 fL (7.4-11.0); MONOCYTES # (AUTO) 0.5 x10^3/uL (0.3-0.8); MONOCYTES % (AUTO) 6.3 % (0.0-13.0); NEUTROPHILS # (AUTO) 6.8 x10^3/uL (2.2-4.8); NEUTROPHILS % (AUTO) 83.1 % (42.0-75.0); PLATELET COUNT 251 X10^3/uL (150.0-450.0); RED BLOOD COUNT 3.62 X10^6/uL (3.5-5.4); RED CELL DISTRIBUTION WIDTH 15.9 % (11.6-16.5); WHITE BLOOD COUNT 8.2 X10^3/uL (3.6-10.0)
[2021-08-15 06:32] LABS: ALANINE AMINOTRANSFERASE 8 Units/L (12-78); ALBUMIN 2.1 g/dL (3.4-5.0); ALKALINE PHOSPHATASE 84 Units/L (46-116); ASPARTATE AMINO TRANSFERASE 23 Units/L (15-37); BLOOD UREA NITROGEN 4 mg/dL (7-18); CALCIUM 9.6 mg/dL (8.5-10.1); CARBON DIOXIDE 38.1 mmol/L (21-32); CHLORIDE 96 mmol/L (98-107); COR CA(FOR HYPOALB) 11.1 mg/dL (8.5-10.1); COR NA(FOR HYPERGLY) 136 mmol/L (136-145); CREATININE 0.56 mg/dL (0.55-1.02); SODIUM 136 mmol/L (136-145); eGFR NON BLACK RACES > 60 (>60)
[2021-08-15] MEDS ORDERED: SEROquel TAB 25 mg PO ONE (07:18)
[2021-08-15] MEDS: SEROquel TAB 25 mg PO PRN (07:21)
[2021-08-15] MEDS ORDERED: GLUCOPHAGE ONE ×2 (07:48→19:32)
[2021-08-15] MEDS ORDERED: ROCEPHIN 1 GRAM IV PREMIX 1 G/50 ML IV.SOLN. IV ONE (09:07)
[2021-08-15] MEDS: ELIQUIS PO SCH ×2 (09:28→20:34)
[2021-08-15] MEDS: ROCEPHIN VIAL 1 GRAM 1 G in NS 100 ML IV + SPIKE MINIBAG* 100 ML IV SCH (09:31)
[2021-08-15] MEDS: GLUCOPHAGE PO SCH ×2 (09:32→20:32)
[2021-08-15] MEDS: REQUIP PO SCH ×2 (09:39→20:33)
[2021-08-15] MEDS: NS 1000 ML 1,000 ML IV SCH ×2 (12:57→22:25)
[2021-08-15] MEDS ORDERED: NICOTINE PATCH TD ONE (18:03)
[2021-08-15] MEDS: NICOTINE PATCH TD SCH (18:04)
[2021-08-15] MEDS: SINEquan PO SCH (20:33)
[2021-08-15] MEDS: LYRICA CAP 150 mg PO SCH (20:34)
[2021-08-15] MEDS: AMBIEN PO SCH (20:34)
[2021-08-16] MEDS: SEROquel TAB 25 mg PO PRN ×3 (03:26→23:54)
[2021-08-16 06:18] LABS: BASOPHILS % (AUTO) 0.5 % (0.2-1.0); EOSINOPHILS # (AUTO) 0.1 x10^3/uL (0.0-0.2); EOSINOPHILS % (AUTO) 2.4 % (0.9-2.9); HEMATOCRIT 30.2 % (36.0-47.0); HEMOGLOBIN 9.6 g/dL (12.0-16.0); LYMPHOCYTES # (AUTO) 0.7 X10^3/uL (1.3-2.9); LYMPHOCYTES % (AUTO) 12.6 % (21.0-51.0); MEAN CORPUSCULAR HEMOGLOBIN 27.4 pg (27.0-34.0); MEAN CORPUSCULAR HGB CONC 31.7 g/dL (33.0-35.0); MEAN CORPUSCULAR VOLUME 86.5 fL (80.0-100.0); MEAN PLATELET VOLUME 8.3 fL (7.4-11.0); MONOCYTES # (AUTO) 0.5 x10^3/uL (0.3-0.8); MONOCYTES % (AUTO) 9.1 % (0.0-13.0); NEUTROPHILS # (AUTO) 4.1 x10^3/uL (2.2-4.8); NEUTROPHILS % (AUTO) 75.4 % (42.0-75.0); PLATELET COUNT 207 X10^3/uL (150.0-450.0); RED BLOOD COUNT 3.49 X10^6/uL (3.5-5.4); RED CELL DISTRIBUTION WIDTH 16.2 % (11.6-16.5); WHITE BLOOD COUNT 5.4 X10^3/uL (3.6-10.0)
[2021-08-16 06:22] LABS: ALANINE AMINOTRANSFERASE 12 Units/L (12-78); ALBUMIN 1.9 g/dL (3.4-5.0); ALKALINE PHOSPHATASE 73 Units/L (46-116); ASPARTATE AMINO TRANSFERASE 23 Units/L (15-37); BLOOD UREA NITROGEN 2 mg/dL (7-18); CALCIUM 9.3 mg/dL (8.5-10.1); CARBON DIOXIDE 38.3 mmol/L (21-32); CHLORIDE 103 mmol/L (98-107); COR NA(FOR HYPERGLY) 142 mmol/L (136-145); CREATININE 0.56 mg/dL (0.55-1.02); SODIUM 142 mmol/L (136-145); TOTAL PROTEIN 6.5 g/dL (6.4-8.2); eGFR NON BLACK RACES > 60 (>60)
[2021-08-16] MEDS ORDERED: GLUCOPHAGE ONE ×2 (08:55→19:42)
[2021-08-16] MEDS: GLUCOPHAGE PO SCH ×3 (09:45→21:58)
[2021-08-16] MEDS: NICOTINE PATCH TD SCH (09:45)
[2021-08-16] MEDS: REQUIP PO SCH ×2 (09:45→21:59)
[2021-08-16] MEDS: ELIQUIS PO SCH ×2 (09:45→21:58)
[2021-08-16] MEDS: ROCEPHIN VIAL 1 GRAM 1 G in NS 100 ML IV + SPIKE MINIBAG* 100 ML IV SCH (09:46)
[2021-08-16] MEDS: PERCOCET TAB 5/325 MG PO PRN (16:16)
[2021-08-16] MEDS: NS 1000 ML 1,000 ML IV SCH (17:05)
[2021-08-16] MEDS ORDERED: HumuLIN R SUBCUT PRN (20:06)
[2021-08-16] MEDS: LYRICA CAP 150 mg PO SCH (21:58)
[2021-08-16] MEDS: AMBIEN PO SCH (21:58)
[2021-08-16] MEDS: SINEquan PO SCH (21:59)
[2021-08-16] MEDS ORDERED: SEROquel TAB 25 mg PO ONE (23:50)
[2021-08-17 05:31] LABS: BASOPHILS % (AUTO) 0.6 % (0.2-1.0); EOSINOPHILS # (AUTO) 0.2 x10^3/uL (0.0-0.2); EOSINOPHILS % (AUTO) 3.9 % (0.9-2.9); HEMATOCRIT 28.4 % (36.0-47.0); LYMPHOCYTES # (AUTO) 0.9 X10^3/uL (1.3-2.9); LYMPHOCYTES % (AUTO) 16.6 % (21.0-51.0); MEAN CORPUSCULAR HEMOGLOBIN 27.3 pg (27.0-34.0); MEAN CORPUSCULAR HGB CONC 31.5 g/dL (33.0-35.0); MEAN CORPUSCULAR VOLUME 86.6 fL (80.0-100.0); MEAN PLATELET VOLUME 8.4 fL (7.4-11.0); MONOCYTES # (AUTO) 0.6 x10^3/uL (0.3-0.8); MONOCYTES % (AUTO) 10.7 % (0.0-13.0); NEUTROPHILS # (AUTO) 3.5 x10^3/uL (2.2-4.8); NEUTROPHILS % (AUTO) 68.2 % (42.0-75.0); PLATELET COUNT 233 X10^3/uL (150.0-450.0); RED BLOOD COUNT 3.28 X10^6/uL (3.5-5.4); RED CELL DISTRIBUTION WIDTH 15.7 % (11.6-16.5); WHITE BLOOD COUNT 5.2 X10^3/uL (3.6-10.0)
[2021-08-17] MEDS: NS 1000 ML 1,000 ML IV SCH ×2 (05:44→14:26)
[2021-08-17 05:47] LABS: ALANINE AMINOTRANSFERASE 16 Units/L (12-78); ALBUMIN 1.8 g/dL (3.4-5.0); BLOOD UREA NITROGEN 3 mg/dL (7-18); TOTAL PROTEIN 6.3 g/dL (6.4-8.2); eGFR NON BLACK RACES > 60 (>60)
[2021-08-17 07:38] LABS: ALKALINE PHOSPHATASE 68 Units/L (46-116); ASPARTATE AMINO TRANSFERASE 31 Units/L (15-37); CALCIUM 8.8 mg/dL (8.5-10.1); CHLORIDE 105 mmol/L (98-107); COR CA(FOR HYPOALB) 10.6 mg/dL (8.5-10.1); CREATININE 0.46 mg/dL (0.55-1.02); SODIUM 144 mmol/L (136-145)
[2021-08-17 07:42] LABS: CARBON DIOXIDE 38.2 mmol/L (21-32)
[2021-08-17] MEDS ORDERED: GLUCOPHAGE ONE ×2 (09:18→19:32)
[2021-08-17] MEDS: NICOTINE PATCH TD SCH (10:20)
[2021-08-17] MEDS: ELIQUIS PO SCH ×2 (10:21→20:50)
[2021-08-17] MEDS: REQUIP PO SCH ×2 (10:21→20:50)
[2021-08-17] MEDS: GLUCOPHAGE PO SCH ×2 (10:21→20:50)
[2021-08-17] MEDS: ROCEPHIN 1 GRAM IV PREMIX 1 G/50 ML IV.SOLN. IV SCH (12:18)
--- NOTE | 2021-08-17 13:04 | RAD ---
HISTORYSOBSTUDYCHEST, 1 [id number]/16/[address] chest 08/06/2020FINDINGSIncreased opacity in the left annamaria thorax is new since the prior study. The finding is nonspecific but could be due to a pleural effusion layering dependently. Could also be due to a diffuse left lung atelectasis as might be caused from a bronchial obstruction from the known mass in the left chest.The findings could also be due to pneumonia. Recommend chest CT for additional evaluation.Right lung clear. No pneumothorax.The heart size is magnified. Vascular calcifications are present compatible with atherosclerosis.Degenerative changes in the shoulders.Fixation hardware is present in the cervical spine.IMPRESSION1. Abnormal left annamaria thorax, see note2. Recommend chest CT for additional evaluationElectronically signed by: Enrique Sherman (Aug 17, 2021 13:01:55)
[2021-08-17] MEDS ORDERED: SNACK - Diabetic Appropriate PO SCH (20:00)
[2021-08-17] MEDS: AMBIEN PO SCH (20:50)
[2021-08-17] MEDS: LYRICA CAP 150 mg PO SCH (20:50)
[2021-08-17] MEDS: SEROquel TAB 25 mg PO PRN (20:51)
[2021-08-17] MEDS: SINEquan PO SCH (20:51)
[2021-08-18] MEDS: NS 1000 ML 1,000 ML IV SCH (01:51)
[2021-08-18 06:46] LABS: BASOPHILS % (AUTO) 0.6 % (0.2-1.0); EOSINOPHILS # (AUTO) 0.2 x10^3/uL (0.0-0.2); EOSINOPHILS % (AUTO) 3.7 % (0.9-2.9); HEMATOCRIT 31.6 % (36.0-47.0); HEMOGLOBIN 10.2 g/dL (12.0-16.0); LYMPHOCYTES # (AUTO) 0.9 X10^3/uL (1.3-2.9); MEAN CORPUSCULAR HEMOGLOBIN 27.6 pg (27.0-34.0); MEAN CORPUSCULAR HGB CONC 32.2 g/dL (33.0-35.0); MEAN CORPUSCULAR VOLUME 85.7 fL (80.0-100.0); MEAN PLATELET VOLUME 8.5 fL (7.4-11.0); MONOCYTES # (AUTO) 0.6 x10^3/uL (0.3-0.8); MONOCYTES % (AUTO) 10.8 % (0.0-13.0); NEUTROPHILS # (AUTO) 3.8 x10^3/uL (2.2-4.8); NEUTROPHILS % (AUTO) 68.9 % (42.0-75.0); PLATELET COUNT 265 X10^3/uL (150.0-450.0); RED BLOOD COUNT 3.68 X10^6/uL (3.5-5.4); WHITE BLOOD COUNT 5.5 X10^3/uL (3.6-10.0)
[2021-08-18 06:58] LABS: ALANINE AMINOTRANSFERASE 20 Units/L (12-78); ALBUMIN 2.1 g/dL (3.4-5.0); ALKALINE PHOSPHATASE 80 Units/L (46-116); ASPARTATE AMINO TRANSFERASE 34 Units/L (15-37); BLOOD UREA NITROGEN 2 mg/dL (7-18); CALCIUM 9.7 mg/dL (8.5-10.1); CHLORIDE 103 mmol/L (98-107); COR CA(FOR HYPOALB) 11.2 mg/dL (8.5-10.1); COR NA(FOR HYPERGLY) 143 mmol/L (136-145); CREATININE 0.58 mg/dL (0.55-1.02); SODIUM 143 mmol/L (136-145); TOTAL PROTEIN 7.4 g/dL (6.4-8.2); eGFR NON BLACK RACES > 60 (>60)
[2021-08-18] MEDS ORDERED: GLUCOPHAGE ONE (09:30)
[2021-08-18] MEDS: NICOTINE PATCH TD SCH (09:47)
[2021-08-18] MEDS: GLUCOPHAGE PO SCH (09:47)
[2021-08-18] MEDS: ELIQUIS PO SCH (09:47)
[2021-08-18] MEDS: REQUIP PO SCH (09:48)
[2021-08-18] MEDS: ROCEPHIN 1 GRAM IV PREMIX 1 G/50 ML IV.SOLN. IV SCH (09:48)
[2021-08-18] MEDS: PERCOCET TAB 5/325 MG PO PRN (12:20)
[2021-08-18] MEDS ORDERED: AUGMENTIN 875 MG/125 MG TAB PO SCH (13:00)
[2021-08-18 13:20] VITALS: BP 132/70
== END 2021-08-18 15:00 | disposition home health service (06) ==
LOC: U 13:51 → ER 13:51 → U 18:26 → OBS 08-14 14:00
PROVIDERS: ADMIT Internal Medicine; ATTEND Internal Medicine
DX: I10 Essential (primary) hypertension; J44.9 Chronic obstructive pulmonary disease, unspecified; R26.89 Other abnormalities of gait and mobility; C34.90 Malignant neoplasm of unspecified part of unspecified bronchus or lung; N39.0 Urinary tract infection, site not specified; R06.02 Shortness of breath; B96.29 Other Escherichia coli [E. coli] as the cause of diseases classified elsewhere; E11.65 Type 2 diabetes mellitus with hyperglycemia; F01.50 Vascular dementia, unspecified severity, without behavioral disturbance, psychotic disturbance, mood disturbance, and anxiety; R41.89 Other symptoms and signs involving cognitive functions and awareness; C79.31 Secondary malignant neoplasm of brain; Z20.822 Contact with and (suspected) exposure to COVID-19; R94.31 Abnormal electrocardiogram [ECG] [EKG]; K21.9 Gastro-esophageal reflux disease without esophagitis

== ENCOUNTER 2021-10-08 15:42 | Observation (INO) ==
[2021-10-08 15:57] VITALS: BMI 23.3
[2021-10-08] MEDS ORDERED: NS 500 ML IV 500 ML IV ONE ×4 (16:02→17:53)
--- NOTE | 2021-10-08 16:02 | DR.DIZZY ---
HPI Time seen Time Seen by Provider: 10/08/21 15:55 Complaint Chief Complaint Doctor Comments: 66 y/o female brought in via EMS for generalized weakness. Recently had left hip fracture surgery. Hasn't been doing well since. Having pain of the left hip, sharp, does not radiate, off/on. Is worse with moving, better with rest. Denies pain or swelling of the calf. Has generalized weakness. Some decreased appetite, with decreased po intake. Denies urinary or bowel issues. No fever, chills, or URI symptoms. COVID-19 Coronavirus risk:travel/contact w/high risk person: No Has patient experienced Coronavirus symptoms: No Nurses Notes Reviewed Nurses Notes Review: Yes Source History Provided: Patient Context Stroke Symptoms: None PMH PMH Past Medical History: Arthritis, COPD, Depression, Diabetes, Dyslipidemia, GERD, Hypertension, [place] and Sleep Apnea Past Surgical History: Yes Surgical History: Hysterectomy and Ortho Surgery Family History Family Medical History: Diabetes Mellitus, Cancer and Hypertension Social History Do you use any recreational Drugs:: No Travel Risk Coronavirus risk:travel/contact w/high risk person: No Has patient experienced Coronavirus symptoms: No ROS Review of Systems Constitutional: Weakness and Fatigue Eyes: No Symptoms Reported ENTM: No Symptoms Reported Respiratoy: No Symptoms Reported Cardiovascular: No Symptoms Reported Gastrointestinal/Abdominal: No Symptoms Reported Genitourinary: No Symptoms Reported Neurological: Weakness Musculoskeletal: Left and Hip Integumentary: No Symptoms Reported Hematologic/Lymphatic: No Symptoms Reported Endocrine: No Symptoms Reported Psychiatric: No Symptoms Reported All Other Systems: Reviewed and Negative PE Vital Signs Vitals: Temperature 100.1 F Pulse Rate 95 Respiratory Rate 18 Blood Pressure [Left Arm] 95/52 Blood Pressure 98/52 O2 Sat by Pulse Oximetry 96 General Limitations: No Limitations General Appearance: Alert and In No Apparent Distress Head Head Exam: Normal Inspection Eyes Eye exam: Normal Appearance ENT ENT Exam: Normal Exam Neck Neck Exam: Normal Inspection and Full ROM Chest Chest Inspection: Normal Inspection Respiratory Respiratory Exam: Normal Lung Sounds Bilat; negative Accessory Muscle Use and Respiratory Distress Respiratory Exam: Bilateral: Clear to Auscultation Cardiovascular Cardiovascular Exam: Regular Rate, Normal Rhythm and Normal Heart Sounds Abdominal Exam Abdominal Exam: Normal Inspection, Normal Bowel Sounds and Soft; negative Tenderness Extremeties Extremities Exam: Normal Inspection and Tenderness (of left hip with ROM.); ne gative Edema Neurologic Neurological Exam: Alert, Oriented X3 and CN II-XII Intact; negative Motor Sensory Deficit Psychiatric Psychiatric Exam: Normal Affect Skin Skin Exam: Warm and Dry MDM Differential Diagnosis Differential Diagnosis: Dehydration and Electrolyte disorder Differential Diagnosis Comment: UTI, pneumonia, PE COURSE Treatment Treatment: PT recently treated at another facility for left hip fracture. Having generalized weakness. BP somewhat low. Pt without specific complaints. W/u initiated, given IV fluids. 1758 - pt with persistent hypotension. No signs of infection. CXR - has persistent left hilar mass, needs further evaluation to r/o carcinoma. Will hold of CT with contrast tonight, in view of poor kidney function, numbers may improve tomorrow after hydration. Will cover with IV rocephin. Will admit for hypotension. Discussed with Dr. Rivera, accepts admission. ROR Labs Reviewed Laboratory Results Reviewed?: Yes Result Diagrams: 10/08/21 16:15 10/08/21 16:15 Laboratory: WBC 6.5 X10^3/uL (3.6-10.0) 10/08/21 16:15 RBC 2.64 X10^6/uL (3.5-5.4) L 10/08/21 16:15 Hgb 7.3 g/dL (12.0-16.0) L 10/08/21 16:15 Hct 22.0 % (36.0-47.0) L 10/08/21 16:15 MCV 83.6 fL (80.0-100.0) 10/08/21 16:15 MCH 27.8 pg (27.0-34.0) 10/08/21 16:15 MCHC 33.2 g/dL (33.0-35.0) 10/08/21 16:15 RDW 17.4 % (11.6-16.5) H 10/08/21 16:15 Plt Count 121 X10^3/uL (150.0-450.0) L 10/08/21 16:15 MPV 8.4 fL (7.4-11.0) 10/08/21 16:15 Neut % (Auto) 84.0 % (42.0-75.0) H 10/08/21 16:15 Lymph % (Auto) 8.4 % (21.0-51.0) L 10/08/21 16:15 [place] % (Auto) 6.5 % (0.0-13.0) 10/08/21 16:15 Eos % (Auto) 0.9 % (0.9-2.9) 10/08/21 16:15 Baso % (Auto) 0.2 % (0.2-1.0) 10/08/21 16:15 Neut # (Auto) 5.5 x10^3/uL (2.2-4.8) H 10/08/21 16:15 Lymph # (Auto) 0.5 X10^3/uL (1.3-2.9) L 10/08/21 16:15 [place] # (Auto) 0.4 x10^3/uL (0.3-0.8) 10/08/21 16:15 Eos # (Auto) 0.1 x10^3/uL (0.0-0.2) 10/08/21 16:15 Baso # (Auto) 0.0 X10^3/uL (0.0-0.1) 10/08/21 16:15 Absolute Nucleated RBC 0.2 /100WBC 10/08/21 16:15 Sodium 133 mmol/L (136-145) L 10/08/21 16:15 Corrected Sodium 134 mmol/L (136-145) L 10/08/21 16:15 Potassium 3.3 mmol/L (3.5-5.1) L 10/08/21 16:15 Chloride 92 mmol/L (98-107) L 10/08/21 16:15 Carbon Dioxide 35.8 mmol/L (21-32) H 10/08/21 16:15 BUN 21 mg/dL (7-18) H 10/08/21 16:15 Creatinine 1.52 mg/dL (0.55-1.02) H 10/08/21 16:15 Est GFR (MDRD) Af Amer 44 (>60) L 10/08/21 16:15 Est GFR (MDRD) Non-Af 36 (>60) L 10/08/21 16:15 Glucose 127 mg/dL (65-99) H 10/08/21 16:15 Lactic Acid 0.9 mmol/L (0.4-2.0) 10/08/21 16:15 Calcium 8.3 mg/dL (8.5-10.1) L 10/08/21 16:15 Corrected Calcium 9.8 mg/dL (8.5-10.1) 10/08/21 16:15 Total Bilirubin 0.40 mg/dL (0.2-1.0) 10/08/21 16:15 AST 47 Units/L (15-37) H 10/08/21 16:15 ALT 41 Units/L (12-78) 10/08/21 16:15 Alkaline Phosphatase 162 Units/L (46-116) H 10/08/21 16:15 Creatine Kinase 21 Units/L (26-192) L 10/08/21 16:15 CK-MB (CK-2) < 1.0 ng/mL (0-4.0) 10/08/21 16:15 CK/CKMB % Calc 4.8 % (<4) 10/08/21 16:15 Troponin I < 0.02 ng/mL (0-1.5) 10/08/21 16:15 Total Protein 6.6 g/dL (6.4-8.2) 10/08/21 16:15 Albumin 2.1 g/dL (3.4-5.0) L 10/08/21 16:15 Globulin 4.5 g/dL (2.5-4.5) 10/08/21 16:15 Albumin/Globulin Ratio 0.5 Ratio (1.1-2.1) L 10/08/21 16:15 Lipase 63 Units/L (73-393) L 10/08/21 16:15 Specimen Type Catherized urine 10/08/21 16:18 Urine Color Dark yellow (YELLOW) 10/08/21 16:18 Urine Appearance Hazy (CLEAR) 10/08/21 16:18 Urine pH 6.0 (5.0 - 8.0) 10/08/21 16:18 Ur Specific [place] 1.015 (1.000-1.030) 10/08/21 16:18 Urine Protein 2+ (NEGATIVE) 10/08/21 16:18 Urine Glucose (UA) Negative (NEGATIVE) 10/08/21 16:18 Urine Ketones Negative (NEGATIVE) 10/08/21 16:18 Urine Occult Blood 1+ (NEGATIVE) 10/08/21 16:18 Urine Nitrite Negative (NEGATIVE) 10/08/21 16:18 Urine Bilirubin Negative (NEGATIVE) 10/08/21 16:18 Urine Urobilinogen 1+ (NORMAL) 10/08/21 16:18 Ur Leukocyte Esterase Negative (NEGATIVE) 10/08/21 16:18 Urine RBC 3-5 /HPF (0-3) A 10/08/21 16:18 Urine WBC 0-2 /HPF (0-5) 10/08/21 16:18 Ur Squamous Epith Cells Few /HPF (NEGATIVE) 10/08/21 16:18 Amorphous Sediment Trace /HPF (NEGATIVE) 10/08/21 16:18 Urine Bacteria Trace /HPF (NEGATIVE) 10/08/21 16:18 Hyaline Casts Few /LPF (NEGATIVE) 10/08/21 16:18 Urine Mucus Few /HPF (NEGATIVE) 10/08/21 16:18 Ur Culture Indicated? No/not indicated 10/08/21 16:18 Other Results Comments: + anemia at 7.3 XRAY XRAY Interpreted by: Radiologist X-ray Results: CXR - with persistent Left hilar mass, concerning for carcinoma. Opioid Opioid Risk Tool Age (Kaveh box if 16-45): No History of Preadolescent Sexual Abuse: No Total: 0 Total Score Risk Category: Low Risk Copyright: Raman WALTER predicting aberrant behaviors Diagnosis Discharge Problem: Acute hypotension, Mass of left lung Anemia Qualifiers: Anemia type: unspecified type Qualified Code(s): D64.9 - Anemia, unspecified
--- NOTE | 2021-10-08 16:38 | RAD ---
HISTORYWEAKNESS, S/P SURGERY [place], HTN, DM, COPD PSH: HYST, ORTHO, LEFT HIP.brSTUDYCHEST, 1 VIEWCOMPARISONChest radiograph 08/17/2021, CT thoracic spine 08/14/2021FINDINGSCardiac silhouette is normal in size. Chronic emphysematous changes noted. There is prominence of the left perihilar region, which corresponds to the patient's left perihilar mass as seen on prior CT of the thoracic spine. No acute alveolar infiltrate or significant effusion is identified. No pneumothorax.IMPRESSIONRe-demonstration of a left perihilar mass, which is grossly unchanged since the patient's prior exam and again highly concerning for primary bronchopulmonary carcinoma.If not already performed, bronchoscopy and biopsy as well as PET-CT is recommended for further evaluation.Electronically signed by: SHAYNE CASTELLANOS (Oct 08, 2021 16:36:28)
[2021-10-08 16:42] LABS: BASOPHILS % (AUTO) 0.2 % (0.2-1.0); EOSINOPHILS # (AUTO) 0.1 x10^3/uL (0.0-0.2); EOSINOPHILS % (AUTO) 0.9 % (0.9-2.9); HEMOGLOBIN 7.3 g/dL (12.0-16.0); LYMPHOCYTES # (AUTO) 0.5 X10^3/uL (1.3-2.9); LYMPHOCYTES % (AUTO) 8.4 % (21.0-51.0); MEAN CORPUSCULAR HEMOGLOBIN 27.8 pg (27.0-34.0); MEAN CORPUSCULAR HGB CONC 33.2 g/dL (33.0-35.0); MEAN CORPUSCULAR VOLUME 83.6 fL (80.0-100.0); MEAN PLATELET VOLUME 8.4 fL (7.4-11.0); MONOCYTES # (AUTO) 0.4 x10^3/uL (0.3-0.8); MONOCYTES % (AUTO) 6.5 % (0.0-13.0); NEUTROPHILS # (AUTO) 5.5 x10^3/uL (2.2-4.8); PLATELET COUNT 121 X10^3/uL (150.0-450.0); RED BLOOD COUNT 2.64 X10^6/uL (3.5-5.4); RED CELL DISTRIBUTION WIDTH 17.4 % (11.6-16.5); WHITE BLOOD COUNT 6.5 X10^3/uL (3.6-10.0)
[2021-10-08 16:45] LABS: BILIRUBIN,URINE NEGATIVE (NEGATIVE); BLOOD/HEMOGLOBIN,URINE 1+ (NEGATIVE); GLUCOSE, URINE NEGATIVE (NEGATIVE); KETONES,URINE NEGATIVE (NEGATIVE); LEUKOCYTE ESTERASE ,URINE NEGATIVE (NEGATIVE); NITRITES,URINE NEGATIVE (NEGATIVE); PROTEIN,URINE 2+ (NEGATIVE); UROBILINOGEN,URINE 1+ (NORMAL)
[2021-10-08 16:52] LABS: AMORPHOUS SEDIMENT,UR TRACE /HPF (NEGATIVE); APPEARANCE,URINE HAZY (CLEAR); BACTERIA,URINE TRACE /HPF (NEGATIVE); COLOR,URINE DARK YELLOW (YELLOW); HYALINE CASTS, URINE FEW /LPF (NEGATIVE); MUCUS,URINE FEW /HPF (NEGATIVE); SQUAMOUS EPITHELIAL CELL,UR FEW /HPF (NEGATIVE)
[2021-10-08 16:59] LABS: LACTIC ACID 0.9 mmol/L (0.4-2.0)
[2021-10-08 17:36] LABS: ALANINE AMINOTRANSFERASE 41 Units/L (12-78); ALBUMIN 2.1 g/dL (3.4-5.0); ALKALINE PHOSPHATASE 162 Units/L (46-116); ASPARTATE AMINO TRANSFERASE 47 Units/L (15-37); BLOOD UREA NITROGEN 21 mg/dL (7-18); CALCIUM 8.3 mg/dL (8.5-10.1); CARBON DIOXIDE 35.8 mmol/L (21-32); CHLORIDE 92 mmol/L (98-107); CKMB % 4.8 % (<4); COR CA(FOR HYPOALB) 9.8 mg/dL (8.5-10.1); COR NA(FOR HYPERGLY) 134 mmol/L (136-145); CREATINE KINASE 21 Units/L (26-192); CREATINE KINASE MB < 1.0 ng/mL (0-4.0); CREATININE 1.52 mg/dL (0.55-1.02); LIPASE 63 Units/L (73-393); SODIUM 133 mmol/L (136-145); TOTAL PROTEIN 6.6 g/dL (6.4-8.2); TROPONIN I < 0.02 ng/mL (0-1.5); eGFR NON BLACK RACES 36 (>60)
[2021-10-08] MEDS ORDERED: ROCEPHIN 1 GRAM IV PREMIX 1 G/50 ML IV.SOLN. IV ONE ×2 (17:55→18:01)
[2021-10-08] MEDS: DUONEB 0.5 MG/3 MG (3 mL) NEB SCH (20:06)
[2021-10-08] MEDS: NS 1,000 ML IV 1,000 ML IV SCH (20:33)
[2021-10-08] MEDS: REQUIP PO SCH (20:39)
[2021-10-08] MEDS: ELIQUIS PO SCH (20:39)
[2021-10-08] MEDS: SINEquan PO SCH (20:43)
[2021-10-08] MEDS ORDERED: DUONEB 0.5 MG/3 MG (3 mL) NEB SCH (21:00)
[2021-10-09] MEDS: NS 1,000 ML IV 1,000 ML IV SCH ×3 (05:06→22:02)
[2021-10-09 06:10] LABS: BASOPHILS % (AUTO) 0.3 % (0.2-1.0); EOSINOPHILS # (AUTO) 0.1 x10^3/uL (0.0-0.2); EOSINOPHILS % (AUTO) 1.2 % (0.9-2.9); LYMPHOCYTES # (AUTO) 0.5 X10^3/uL (1.3-2.9); LYMPHOCYTES % (AUTO) 10.1 % (21.0-51.0); MEAN CORPUSCULAR HEMOGLOBIN 27.6 pg (27.0-34.0); MEAN CORPUSCULAR VOLUME 83.6 fL (80.0-100.0); MEAN PLATELET VOLUME 8.6 fL (7.4-11.0); MONOCYTES # (AUTO) 0.4 x10^3/uL (0.3-0.8); MONOCYTES % (AUTO) 8.7 % (0.0-13.0); NEUTROPHILS # (AUTO) 3.6 x10^3/uL (2.2-4.8); NEUTROPHILS % (AUTO) 79.7 % (42.0-75.0); PLATELET COUNT 99 X10^3/uL (150.0-450.0); RED BLOOD COUNT 2.22 X10^6/uL (3.5-5.4); RED CELL DISTRIBUTION WIDTH 17.3 % (11.6-16.5); WHITE BLOOD COUNT 4.5 X10^3/uL (3.6-10.0)
[2021-10-09 06:21] LABS: ALANINE AMINOTRANSFERASE 40 Units/L (12-78); ALBUMIN 1.8 g/dL (3.4-5.0); ALKALINE PHOSPHATASE 155 Units/L (46-116); ASPARTATE AMINO TRANSFERASE 47 Units/L (15-37); BLOOD UREA NITROGEN 12 mg/dL (7-18); CALCIUM 8.1 mg/dL (8.5-10.1); CARBON DIOXIDE 33.9 mmol/L (21-32); CHLORIDE 99 mmol/L (98-107); COR CA(FOR HYPOALB) 9.9 mg/dL (8.5-10.1); COR NA(FOR HYPERGLY) 138 mmol/L (136-145); CREATININE 0.65 mg/dL (0.55-1.02); SODIUM 137 mmol/L (136-145); TOTAL PROTEIN 5.8 g/dL (6.4-8.2); eGFR NON BLACK RACES > 60 (>60)
[2021-10-09 06:33] LABS: HEMATOCRIT 18.6 % (36.0-47.0); HEMOGLOBIN 6.1 g/dL (12.0-16.0)
--- NOTE | 2021-10-09 07:59 | DR.H&P ---
H&P History & Physical for Day of: H&P Date: 10/09/21 Chief Complaint Chief Complaint: Generalized weakness Lightheaded, Dizziness Allergies Allergies Allergy/AdvReac Type Severity Reaction Status Date / Time No Known Drug Allergies Allergy Verified 05/08/21 19:47 History of Present Illness History of Present Illness: Pt is a 66 year old female past medical history of Metastatic Lung cancer, COPD, HTN, admitted for dehydration, acute hypotension and symptomatic anemia. Pt reports feeling weak, dizzy, and lightheaded for the past few days. She states getting chemotherapy treatments monthly and has been feeling "down" since last treatment. In the ED, she was found to be acutely hypotensive with blood pressure 77/52. She was immediately given IVF NS 2L bolus and started on maintenance fluids. Blood pressure appropriately responded. Labs/imaging: Wbc 4.5, Hgb 6.1, Plt 99, Na 137, K 3.2, Creatinine 1.52>0.65, Glucose 144, CXR: Re-demonstration of a left perihilar mass, which is grossly unchanged since the patient's prior exam and again highly concerning for primary bronchopulmonary carcinoma. Will order and transfuse 2 units of packed red blood cells. Decrease IVF to KVO, to prevent fluid overload. Blood pressure stabilized. Repeat hemoglobin after transfusion and replete potassium per protocol. Restart home medications. Holding blood pressure medication at this time, can restart tomorrow. Will continue to monitor and follow up labs. Past Medical History Past Medical History: Arthritis, COPD, Depression, Diabetes, Dyslipidemia, GERD, Hypertension, [place] and Sleep Apnea Past Surgical History Surgical History: Hysterectomy and Ortho Surgery Family History Family Medical History: Diabetes Mellitus, Cancer and Hypertension Social History Does patient currently use any type of tobacco product: Yes Have you used tobacco products in the last 12 months: Yes Type of Tobacco Use: Cigarettes Alcohol Use: None Drug Use: None Medications Home Medications: No Known Drug Allergies Allergy (Verified 05/08/21 19:47) CONTINUE taking the following medications apixaban [Eliquis] 5 mg PO BID 10/08/21 [History] doxepin 25 mg PO HS 10/08/21 [History] ohpefsvdowh-[id number] [Trelegy Ellipta] 1 ea INHALATION DAILY 10/08/21 [History] ipratropium-albuterol 3 ml INHALATION QID 10/08/21 [History] lisinopril-hydrochlorothiazide 1 tab PO DAILY 10/08/21 [History] meloxicam 7.5 mg PO DAILY 10/08/21 [History] ondansetron HCl 8 mg PO Q6HR PRN 10/08/21 [History] oxycodone-acetaminophen 1 tab PO QID PRN 10/08/21 [History] pregabalin 200 mg PO HS 10/08/21 [History] Labs Result Diagrams: 10/11/21 04:26 10/11/21 04:26 Labs: Laboratory WBC 4.5 X10^3/uL (3.6-10.0) 10/09/21 05:08 RBC 2.22 X10^6/uL (3.5-5.4) L 10/09/21 05:08 Hgb 6.1 g/dL (12.0-16.0) L* 10/09/21 05:08 Hct 18.6 % (36.0-47.0) L* 10/09/21 05:08 MCV 83.6 fL (80.0-100.0) 10/09/21 05:08 MCH 27.6 pg (27.0-34.0) 10/09/21 05:08 MCHC 33.0 g/dL (33.0-35.0) 10/09/21 05:08 RDW 17.3 % (11.6-16.5) H 10/09/21 05:08 Plt Count 99 X10^3/uL (150.0-450.0) L 10/09/21 05:08 MPV 8.6 fL (7.4-11.0) 10/09/21 05:08 Neut % (Auto) 79.7 % (42.0-75.0) H 10/09/21 05:08 Lymph % (Auto) 10.1 % (21.0-51.0) L 10/09/21 05:08 [place] % (Auto) 8.7 % (0.0-13.0) 10/09/21 05:08 Eos % (Auto) 1.2 % (0.9-2.9) 10/09/21 05:08 Baso % (Auto) 0.3 % (0.2-1.0) 10/09/21 05:08 Neut # (Auto) 3.6 x10^3/uL (2.2-4.8) 10/09/21 05:08 Lymph # (Auto) 0.5 X10^3/uL (1.3-2.9) L 10/09/21 05:08 [place] # (Auto) 0.4 x10^3/uL (0.3-0.8) 10/09/21 05:08 Eos # (Auto) 0.1 x10^3/uL (0.0-0.2) 10/09/21 05:08 Baso # (Auto) 0.0 X10^3/uL (0.0-0.1) 10/09/21 05:08 Absolute Nucleated RBC 0.2 /100WBC 10/09/21 05:08 Sodium 137 mmol/L (136-145) 10/09/21 05:08 Corrected Sodium 138 mmol/L (136-145) 10/09/21 05:08 Potassium 3.2 mmol/L (3.5-5.1) L 10/09/21 05:08 Chloride 99 mmol/L (98-107) 10/09/21 05:08 Carbon Dioxide 33.9 mmol/L (21-32) H 10/09/21 05:08 BUN 12 mg/dL (7-18) 10/09/21 05:08 Creatinine 0.65 mg/dL (0.55-1.02) 10/09/21 05:08 Est GFR (MDRD) Af Amer > 60 (>60) 10/09/21 05:08 Est GFR (MDRD) Non-Af > 60 (>60) 10/09/21 05:08 Glucose 144 mg/dL (65-99) H 10/09/21 05:08 POC Glucose (mg/dL) 152 mg/dL (65-99) H 10/09/21 05:09 Lactic Acid 0.9 mmol/L (0.4-2.0) 10/08/21 16:15 Calcium 8.1 mg/dL (8.5-10.1) L 10/09/21 05:08 Corrected Calcium 9.9 mg/dL (8.5-10.1) 10/09/21 05:08 Magnesium 1.6 mg/dL (1.7-2.9) L 10/09/21 05:08 Total Bilirubin 0.30 mg/dL (0.2-1.0) 10/09/21 05:08 AST 47 Units/L (15-37) H 10/09/21 05:08 ALT 40 Units/L (12-78) 10/09/21 05:08 Alkaline Phosphatase 155 Units/L (46-116) H 10/09/21 05:08 Creatine Kinase 21 Units/L (26-192) L 10/08/21 16:15 CK-MB (CK-2) < 1.0 ng/mL (0-4.0) 10/08/21 16:15 CK/CKMB % Calc 4.8 % (<4) 10/08/21 16:15 Troponin I < 0.02 ng/mL (0-1.5) 10/08/21 16:15 Total Protein 5.8 g/dL (6.4-8.2) L 10/09/21 05:08 Albumin 1.8 g/dL (3.4-5.0) L 10/09/21 05:08 Globulin 4.0 g/dL (2.5-4.5) 10/09/21 05:08 Albumin/Globulin Ratio 0.5 Ratio (1.1-2.1) L 10/09/21 05:08 Lipase 63 Units/L (73-393) L 10/08/21 16:15 Specimen Type Catherized urine 10/08/21 16:18 Urine Color Dark yellow (YELLOW) 10/08/21 16:18 Urine Appearance Hazy (CLEAR) 10/08/21 16:18 Urine pH 6.0 (5.0 - 8.0) 10/08/21 16:18 Ur Specific [place] 1.015 (1.000-1.030) 10/08/21 16:18 Urine Protein 2+ (NEGATIVE) 10/08/21 16:18 Urine Glucose (UA) Negative (NEGATIVE) 10/08/21 16:18 Urine Ketones Negative (NEGATIVE) 10/08/21 16:18 Urine Occult Blood 1+ (NEGATIVE) 10/08/21 16:18 Urine Nitrite Negative (NEGATIVE) 10/08/21 16:18 Urine Bilirubin Negative (NEGATIVE) 10/08/21 16:18 Urine Urobilinogen 1+ (NORMAL) 10/08/21 16:18 Ur Leukocyte Esterase Negative (NEGATIVE) 10/08/21 16:18 Urine RBC 3-5 /HPF (0-3) A 10/08/21 16:18 Urine WBC 0-2 /HPF (0-5) 10/08/21 16:18 Ur Squamous Epith Cells Few /HPF (NEGATIVE) 10/08/21 16:18 Amorphous Sediment Trace /HPF (NEGATIVE) 10/08/21 16:18 Urine Bacteria Trace /HPF (NEGATIVE) 10/08/21 16:18 Hyaline Casts Few /LPF (NEGATIVE) 10/08/21 16:18 Urine Mucus Few /HPF (NEGATIVE) 10/08/21 16:18 Ur Culture Indicated? No/not indicated 10/08/21 16:18 SARS CoV-2 RNA Rapid MICKEY Negative (NEGATIVE) 10/08/21 17:58 Review of Systems Constitutional: Weakness; denies Fever and Chills Eyes: No Symptoms Reported ENT: No Symptoms Reported Respiratory: No Symptoms Reported Cardiovascular: No Symptoms Reported Gastrointestinal: No Symptoms Reported Genitourinary: No Symptoms Reported Musculoskeletal: No Symptoms Reported Skin: No Symptoms Reported Neurological: No Symptoms Reported Physical Exam Vital Signs: Temperature 98.8 F Pulse Rate [Right Brachial] 96 Pulse Rate 85 Respiratory Rate 20 Blood Pressure [Left Arm] 118/61 Blood Pressure 92/53 O2 Sat by Pulse Oximetry 95 Oriented: Normal Eyes: Normal Ear: Normal Nose: Normal Throat: Normal Respiratory: Clear Throughout Cardiovascular: Normal : Normal Auscultation: Bowel Sounds: Normal Palpation: Normal Tenderness: Normal Skin: Normal Musculoskeletal: Normal Psychiatric: Normal Mood Description: Calm and Appropriate Affect: Normal Speech Pattern: Clear and Appropriate Assessment/Plan (1) Symptomatic anemia: Status: Acute Plan: Transfuse 2 units packed red blood cells Trend Hgb (2) Acute hypotension: Status: Resolved Plan: IVF (3) Dehydration: Status: Resolved Review H&P Reviewed: Yes Patient was examined?: Yes
[2021-10-09] MEDS ORDERED: POTASSIUM CHL 60 MEQ/NS 0.45% 500 ML IV PRN (08:02)
[2021-10-09] MEDS ORDERED: MICRO K EXTEN CAP 10 MEQ PO PRN (08:02)
[2021-10-09] MEDS ORDERED: POTASSIUM CHL 40 MEQ/NS 0.45% 500 ML IV PRN (08:02)
[2021-10-09] MEDS ORDERED: POTASSIUM CHLORIDE LIQ 20 MEQ UDC PO PRN (08:02)
[2021-10-09] MEDS ORDERED: K-RIDER 10 MEQ/NS 100 ML 10 MEQ/100 ML BAG IV PRN (08:02)
[2021-10-09] MEDS ORDERED: KLOR-CON PO PRN (08:02)
[2021-10-09] MEDS: DUONEB 0.5 MG/3 MG (3 mL) NEB SCH ×4 (08:46→20:34)
[2021-10-09] MEDS: PERCOCET TAB 5/325 MG PO PRN ×2 (09:00→16:16)
[2021-10-09] MEDS: ELIQUIS PO SCH ×2 (09:05→20:12)
[2021-10-09] MEDS: MAGNESIUM SULFATE 1 GRAM/100 mL PREMIX 1 G/100 ML BAG IV PRN ×2 (09:06→10:55)
[2021-10-09] MEDS: REQUIP PO SCH ×2 (09:06→20:12)
[2021-10-09] MEDS ORDERED: BENADRYL CAP/TAB 25 MG PO ONE (12:00)
[2021-10-09] MEDS: K-DUR TAB 20 MEQ PO PRN ×3 (12:47→22:17)
[2021-10-09] MEDS ORDERED: ZOFRAN INJ 4 MG VIAL IVP PRN (19:45)
[2021-10-09] MEDS ORDERED: ZOFRAN INJ 4 MG VIAL ONE (19:47)
[2021-10-09] MEDS: SINEquan PO SCH (20:12)
[2021-10-09 20:18] LABS: HEMATOCRIT 27.2 % (36.0-47.0)
[2021-10-09 20:26] LABS: HEMOGLOBIN 9.1 g/dL (12.0-16.0)
[2021-10-09] MEDS: TYLENOL 325 MG TAB PO PRN (23:21)
[2021-10-10] MEDS: NS 1,000 ML IV 1,000 ML IV SCH ×3 (03:34→19:41)
[2021-10-10 05:11] LABS: BASOPHILS % (AUTO) 0.4 % (0.2-1.0); EOSINOPHILS % (AUTO) 1.2 % (0.9-2.9); HEMOGLOBIN 8.8 g/dL (12.0-16.0); LYMPHOCYTES # (AUTO) 0.6 X10^3/uL (1.3-2.9); MEAN CORPUSCULAR HEMOGLOBIN 27.3 pg (27.0-34.0); MEAN CORPUSCULAR HGB CONC 33.7 g/dL (33.0-35.0); MEAN PLATELET VOLUME 8.5 fL (7.4-11.0); MONOCYTES # (AUTO) 0.4 x10^3/uL (0.3-0.8); MONOCYTES % (AUTO) 10.3 % (0.0-13.0); NEUTROPHILS # (AUTO) 2.8 x10^3/uL (2.2-4.8); NEUTROPHILS % (AUTO) 72.1 % (42.0-75.0); PLATELET COUNT 103 X10^3/uL (150.0-450.0); RED BLOOD COUNT 3.21 X10^6/uL (3.5-5.4); RED CELL DISTRIBUTION WIDTH 17.5 % (11.6-16.5); WHITE BLOOD COUNT 3.9 X10^3/uL (3.6-10.0)
[2021-10-10 05:37] LABS: ALANINE AMINOTRANSFERASE 57 Units/L (12-78); ALBUMIN 1.8 g/dL (3.4-5.0); ALKALINE PHOSPHATASE 184 Units/L (46-116); ASPARTATE AMINO TRANSFERASE 68 Units/L (15-37); BLOOD UREA NITROGEN 5 mg/dL (7-18); CALCIUM 8.8 mg/dL (8.5-10.1); CARBON DIOXIDE 34.9 mmol/L (21-32); CHLORIDE 102 mmol/L (98-107); COR CA(FOR HYPOALB) 10.6 mg/dL (8.5-10.1); CREATININE 0.53 mg/dL (0.55-1.02); MAGNESIUM 1.7 mg/dL (1.7-2.9); SODIUM 140 mmol/L (136-145); TOTAL PROTEIN 6.2 g/dL (6.4-8.2); eGFR NON BLACK RACES > 60 (>60)
[2021-10-10] MEDS: MAGNESIUM SULFATE 1 GRAM/100 mL PREMIX 1 G/100 ML BAG IV PRN ×2 (06:09→21:07)
[2021-10-10] MEDS: DUONEB 0.5 MG/3 MG (3 mL) NEB SCH ×4 (08:20→20:49)
[2021-10-10] MEDS: REQUIP PO SCH ×2 (09:10→20:10)
[2021-10-10] MEDS: ELIQUIS PO SCH ×2 (09:10→20:10)
[2021-10-10] MEDS: PERCOCET TAB 5/325 MG PO PRN (10:22)
--- NOTE | 2021-10-10 19:02 | PCM.PROG ---
Progress Note Progress Note for Day of Date of Exam: 10/10/21 Subjective Subjective: Patient feels much Hb is down from 9.1 to 8.8. If it is stable in am will plan on discharging patient home. Past Medical Family Social History Past Med/Fam/Surg Hx: No changes since H&P Allergies: Allergies No Known Drug Allergies Allergy (Verified 05/08/21 19:47) Review of Systems ROS: No change since H&P Vital Signs and I&O's Vital Signs: Temperature 98.5 F Pulse Rate [Right Brachial] 90 Pulse Rate 90 Respiratory Rate 22 Blood Pressure [Left Arm] 112/62 Blood Pressure 92/53 O2 Sat by Pulse Oximetry 93 Intake and Output: Intake & Output 10/08/21 10/09/21 10/10/21 10/11/21 11:59 11:59 11:59 11:59 Intake Total 1385 / 1385 2785 / 2785 720 / 720 Balance 1385 / 1385 2785 / 2785 720 / 720 Physical Exam Oriented: Normal Eyes: Normal Ear: Normal Respiratory: Normal Cardiovascular: Normal Palpation: Normal Tenderness: Normal Skin: Normal Musculoskeletal: Normal Psychiatric: Normal Mood Description: Calm Affect: Normal Speech Pattern: Clear and Appropriate Laboratory and Diagnostics Result Diagrams: 10/10/21 04:21 10/10/21 04:21 Labs: Laboratory WBC 3.9 X10^3/uL (3.6-10.0) 10/10/21 04:21 RBC 3.21 X10^6/uL (3.5-5.4) L 10/10/21 04:21 Hgb 8.8 g/dL (12.0-16.0) L 10/10/21 04:21 Hct 26.0 % (36.0-47.0) L 10/10/21 04:21 MCV 81.0 fL (80.0-100.0) 10/10/21 04:21 MCH 27.3 pg (27.0-34.0) 10/10/21 04:21 MCHC 33.7 g/dL (33.0-35.0) 10/10/21 04:21 RDW 17.5 % (11.6-16.5) H 10/10/21 04:21 Plt Count 103 X10^3/uL (150.0-450.0) L 10/10/21 04:21 MPV 8.5 fL (7.4-11.0) 10/10/21 04:21 Neut % (Auto) 72.1 % (42.0-75.0) 10/10/21 04:21 Lymph % (Auto) 16.0 % (21.0-51.0) L 10/10/21 04:21 [place] % (Auto) 10.3 % (0.0-13.0) 10/10/21 04:21 Eos % (Auto) 1.2 % (0.9-2.9) 10/10/21 04:21 Baso % (Auto) 0.4 % (0.2-1.0) 10/10/21 04:21 Neut # (Auto) 2.8 x10^3/uL (2.2-4.8) 10/10/21 04:21 Lymph # (Auto) 0.6 X10^3/uL (1.3-2.9) L 10/10/21 04:21 [place] # (Auto) 0.4 x10^3/uL (0.3-0.8) 10/10/21 04:21 Eos # (Auto) 0.0 x10^3/uL (0.0-0.2) 10/10/21 04:21 Baso # (Auto) 0.0 X10^3/uL (0.0-0.1) 10/10/21 04:21 Absolute Nucleated RBC 0.3 /100WBC 10/10/21 04:21 Sodium 140 mmol/L (136-145) 10/10/21 04:21 Corrected Sodium TNP 10/10/21 04:21 Potassium 4.0 mmol/L (3.5-5.1) 10/10/21 04:21 Chloride 102 mmol/L (98-107) 10/10/21 04:21 Carbon Dioxide 34.9 mmol/L (21-32) H 10/10/21 04:21 BUN 5 mg/dL (7-18) L 10/10/21 04:21 Creatinine 0.53 mg/dL (0.55-1.02) L 10/10/21 04:21 Est GFR (MDRD) Af Amer > 60 (>60) 10/10/21 04:21 Est GFR (MDRD) Non-Af > 60 (>60) 10/10/21 04:21 Glucose 99 mg/dL (65-99) 10/10/21 04:21 POC Glucose (mg/dL) 93 mg/dL (65-99) 10/10/21 16:19 Lactic Acid 0.9 mmol/L (0.4-2.0) 10/08/21 16:15 Calcium 8.8 mg/dL (8.5-10.1) 10/10/21 04:21 Corrected Calcium 10.6 mg/dL (8.5-10.1) H 10/10/21 04:21 Magnesium 1.7 mg/dL (1.7-2.9) 10/10/21 04:21 Total Bilirubin 0.50 mg/dL (0.2-1.0) 10/10/21 04:21 AST 68 Units/L (15-37) H 10/10/21 04:21 ALT 57 Units/L (12-78) 10/10/21 04:21 Alkaline Phosphatase 184 Units/L (46-116) H 10/10/21 04:21 Creatine Kinase 21 Units/L (26-192) L 10/08/21 16:15 CK-MB (CK-2) < 1.0 ng/mL (0-4.0) 10/08/21 16:15 CK/CKMB % Calc 4.8 % (<4) 10/08/21 16:15 Troponin I < 0.02 ng/mL (0-1.5) 10/08/21 16:15 Total Protein 6.2 g/dL (6.4-8.2) L 10/10/21 04:21 Albumin 1.8 g/dL (3.4-5.0) L 10/10/21 04:21 Globulin 4.4 g/dL (2.5-4.5) 10/10/21 04:21 Albumin/Globulin Ratio 0.4 Ratio (1.1-2.1) L 10/10/21 04:21 Lipase 63 Units/L (73-393) L 10/08/21 16:15 Specimen Type Catherized urine 10/08/21 16:18 Urine Color Dark yellow (YELLOW) 10/08/21 16:18 Urine Appearance Hazy (CLEAR) 10/08/21 16:18 Urine pH 6.0 (5.0 - 8.0) 10/08/21 16:18 Ur Specific [place] 1.015 (1.000-1.030) 10/08/21 16:18 Urine Protein 2+ (NEGATIVE) 10/08/21 16:18 Urine Glucose (UA) Negative (NEGATIVE) 10/08/21 16:18 Urine Ketones Negative (NEGATIVE) 10/08/21 16:18 Urine Occult Blood 1+ (NEGATIVE) 10/08/21 16:18 Urine Nitrite Negative (NEGATIVE) 10/08/21 16:18 Urine Bilirubin Negative (NEGATIVE) 10/08/21 16:18 Urine Urobilinogen 1+ (NORMAL) 10/08/21 16:18 Ur Leukocyte Esterase Negative (NEGATIVE) 10/08/21 16:18 Urine RBC 3-5 /HPF (0-3) A 10/08/21 16:18 Urine WBC 0-2 /HPF (0-5) 10/08/21 16:18 Ur Squamous Epith Cells Few /HPF (NEGATIVE) 10/08/21 16:18 Amorphous Sediment Trace /HPF (NEGATIVE) 10/08/21 16:18 Urine Bacteria Trace /HPF (NEGATIVE) 10/08/21 16:18 Hyaline Casts Few /LPF (NEGATIVE) 10/08/21 16:18 Urine Mucus Few /HPF (NEGATIVE) 10/08/21 16:18 Ur Culture Indicated? No/not indicated 10/08/21 16:18 Stool Description 125 grms soft brown 10/10/21 11:08 Stl Occult Blood (IFOB) Negative (NEGATIVE) 10/10/21 11:08 SARS CoV-2 RNA Rapid MICKEY Negative (NEGATIVE) 10/08/21 17:58 Blood Type A POSITIVE 10/09/21 08:31 Antibody Screen Negative 10/09/21 08:31 Crossmatch See Detail 10/09/21 08:31 Radiology Reviewed: Yes Plan (1) Symptomatic anemia: Status: Acute Plan: If Hb is holding in am will plan on discharging home. CBC in am. (2) Acute hypotension: Status: Resolved (3) Dehydration: Status: Resolved
[2021-10-10] MEDS: TYLENOL 325 MG TAB PO PRN (19:41)
[2021-10-10] MEDS: SINEquan PO SCH (20:10)
[2021-10-10] MEDS: NICOTINE PATCH TD SCH (20:27)
[2021-10-11] MEDS: NS 1,000 ML IV 1,000 ML IV SCH ×2 (03:55→12:44)
[2021-10-11 05:11] LABS: BASOPHILS % (AUTO) 0.6 % (0.2-1.0); EOSINOPHILS % (AUTO) 1.5 % (0.9-2.9); HEMATOCRIT 26.3 % (36.0-47.0); HEMOGLOBIN 8.7 g/dL (12.0-16.0); LYMPHOCYTES # (AUTO) 0.5 X10^3/uL (1.3-2.9); LYMPHOCYTES % (AUTO) 15.3 % (21.0-51.0); MEAN CORPUSCULAR HEMOGLOBIN 27.2 pg (27.0-34.0); MEAN CORPUSCULAR VOLUME 82.5 fL (80.0-100.0); MONOCYTES # (AUTO) 0.4 x10^3/uL (0.3-0.8); MONOCYTES % (AUTO) 11.9 % (0.0-13.0); NEUTROPHILS # (AUTO) 2.3 x10^3/uL (2.2-4.8); NEUTROPHILS % (AUTO) 70.7 % (42.0-75.0); PLATELET COUNT 129 X10^3/uL (150.0-450.0); RED BLOOD COUNT 3.18 X10^6/uL (3.5-5.4); RED CELL DISTRIBUTION WIDTH 17.7 % (11.6-16.5); WHITE BLOOD COUNT 3.2 X10^3/uL (3.6-10.0)
[2021-10-11] MEDS: TYLENOL 325 MG TAB PO PRN (05:22)
[2021-10-11 05:43] LABS: ALANINE AMINOTRANSFERASE 46 Units/L (12-78); ALBUMIN 1.8 g/dL (3.4-5.0); ALKALINE PHOSPHATASE 170 Units/L (46-116); ASPARTATE AMINO TRANSFERASE 44 Units/L (15-37); BLOOD UREA NITROGEN 3 mg/dL (7-18); CARBON DIOXIDE 36.5 mmol/L (21-32); CHLORIDE 103 mmol/L (98-107); COR CA(FOR HYPOALB) 10.8 mg/dL (8.5-10.1); MAGNESIUM 1.8 mg/dL (1.7-2.9); SODIUM 142 mmol/L (136-145); TOTAL PROTEIN 6.2 g/dL (6.4-8.2); eGFR NON BLACK RACES > 60 (>60)
[2021-10-11] MEDS: K-DUR TAB 20 MEQ PO PRN (05:58)
[2021-10-11] MEDS: MAGNESIUM SULFATE 1 GRAM/100 mL PREMIX 1 G/100 ML BAG IV PRN (05:58)
[2021-10-11] MEDS: ELIQUIS PO SCH (09:20)
[2021-10-11] MEDS: NICOTINE PATCH TD SCH (09:20)
[2021-10-11] MEDS: DUONEB 0.5 MG/3 MG (3 mL) NEB SCH (09:21)
[2021-10-11] MEDS: REQUIP PO SCH (09:21)
[2021-10-11] MEDS: PERCOCET TAB 5/325 MG PO PRN (09:23)
[2021-10-11 12:05] VITALS: BP 138/68
== END 2021-10-11 13:15 | disposition home or self-care (01) ==
LOC: ER 15:42 → MED/SURG 15:42
PROVIDERS: ADMIT Internal Medicine; ATTEND Family Medicine
DX: J44.9 Chronic obstructive pulmonary disease, unspecified; Z92.21 Personal history of antineoplastic chemotherapy; E86.0 Dehydration; E78.2 Mixed hyperlipidemia; E11.65 Type 2 diabetes mellitus with hyperglycemia; C34.90 Malignant neoplasm of unspecified part of unspecified bronchus or lung; K21.9 Gastro-esophageal reflux disease without esophagitis; I95.89 Other hypotension; D64.89 Other specified anemias; R42 Dizziness and giddiness; Z20.822 Contact with and (suspected) exposure to COVID-19

== ENCOUNTER 2022-01-18 13:14 | Inpatient (IN) ==
[2022-01-18] MEDS ORDERED: ADRENALINE CHL INJ (ABBOJECT) IVP ONE (13:18)
[2022-01-18] MEDS ORDERED: NS 1,000 ML IV 1,000 ML IV ONE (13:24)
--- NOTE | 2022-01-18 13:26 | DR.GENAD ---
HPI Time Seen Time Seen by Provider: 01/18/22 13:15 Complaint/Symptoms Chief Complaint Doctors Comments: 66 y/o female brought in via EMS in full cardiac arrest. EMS was called out for difficulty in breathing. On their arrival, pt being brought out to then in a wheelchair, when she slumped over, started frothing at the mouth. EMS intubated the pt, started IV, I/O. Initially in PEA. They gave 4-5 epis, a bicarb and a d50. Pt went to asystole for them. No ROSC prior to arrival. On arrival, pt in PEA. Nurses notes reviewed Nurses Notes Review: Yes Source History Provided: EMS Mode of Arrival Mode of Arrival: EMS Timing Came on: Suddenly PMH PMH Past Medical History: Arthritis, COPD, Depression, Diabetes, Dyslipidemia, GERD, Hypertension, LA and Sleep Apnea Past Surgical History: Yes Surgical History: Hysterectomy and Ortho Surgery Family History Family Medical History: Diabetes Mellitus, Cancer and Hypertension Social History Do you use any recreational Drugs:: No ROS Review of Systems Unable to Obtain Due To: Altered mental status and Intubated PE Vital Signs Vitals: Temperature 97.0 F Pulse Rate 122 Respiratory Rate 28 Blood Pressure [Left Arm] 118/61 Blood Pressure 102/69 O2 Sat by Pulse Oximetry 99 General Limitations: Other (in full arrest) General Appearance: Other (unresponsive to verbal or noxious stimuli) Head Head Exam: Normal Inspection, Atraumatic and Normocephalic Eyes Eye exam: Other Neck Neck Exam: Normal Inspection Respiratory Respiratory Exam: Bilateral: Clear to Auscultation (with bagging via ET tube) Cardiovascular Cardiovascular Exam: Other (no cardiac sounds) Abdominal Exam Abdominal Exam: Soft Extremities Extremities Exam: Edema and Other (no obvious deformities) Neurologic Neurological Exam: Other (unresponsive, no spontaneous movements, pupils mid fi xed.) Skin Skin Exam: Warm and Dry MDM Differential Diagnosis Differential Diagnosis: cardiac arrest, LA, PE COURSE Treatment Treatment: Brought in via EMS in full arrest. Went down on EMS arrival. Was PEA to asystole with them, despite 4-5 epi's, bicarb and D50 DU[employer]. + PEA on arrival. CPR continued, given IV epi here. + return of spontaneous circulation. + tachy with atrial fibrillation. Pt's pupils mid fixed, unresponsive. Informed family of pt's status. Down time 50 minutes prior to ROSC, not optimistic about a positive outcome. Family agrees to comfort measures, no further resuscutation if her heart stops working again. 1600 - BP was dropping, maintaining heart rate, mild tachycardia. Dopamine drip given. WBC elevated, covered with IV antibiotic. Labs overall acceptable considering her current condition. Discussed with her MD, Dr Washburn. Will admit pt here, for comfort measures primarily. ROR Labs Reviewed Laboratory Results Reviewed?: Yes Result Diagrams: 01/18/22 13:27 01/18/22 13: Laboratory: WBC 25.5 X10^3/uL (3.6-10.0) H 01/18/22 13: RBC 2.97 X10^6/uL (3.5-5.4) L 01/18/22 13: Hgb 8.8 g/dL (12.0-16.0) L 01/18/22 13: Hct 27.8 % (36.0-47.0) L 01/18/22 13: MCV 93.7 fL (80.0-100.0) 01/18/22 13: MCH 29.5 pg (27.0-34.0) 01/18/22 13: MCHC 31.5 g/dL (33.0-35.0) L 01/18/22 13: RDW 15.8 % (11.6-16.5) 01/18/22 13: Plt Count 134 X10^3/uL (150.0-450.0) L 01/18/22 13: Plt Count Comment Decreased (ADEQUATE) A 01/18/22: MPV 8.3 fL (7.4-11.0) 01/18/22 13: Neut % (Auto) 71.1 % (42.0-75.0) 01/18/22 13: Lymph % (Auto) 23.8 % (21.0-51.0) 01/18/22 13: Hand % (Auto) 4.4 % (0.0-13.0) 01/18/22 13: Eos % (Auto) 0.3 % (0.9-2.9) L 01/18/22 13: Baso % (Auto) 0.4 % (0.2-1.0) 01/18/22 13:27 Neut # (Auto) 18.2 x10^3/uL (2.2-4.8) H 01/18/22 13:27 Lymph # (Auto) 6.1 X10^3/uL (1.3-2.9) H 01/18/22 13:27 Hand # (Auto) 1.1 x10^3/uL (0.3-0.8) H 01/18/22 13:27 Eos # (Auto) 0.1 x10^3/uL (0.0-0.2) 01/18/22 13: Baso # (Auto) 0.1 X10^3/uL (0.0-0.1) 01/18/22 13: Absolute Nucleated RBC 0.2 /100WBC 01/18/22 13:27 Total Counted 100 01/18/22 13:27 Neutrophils % (Manual) 65 % (39-76) 01/18/22 13: Band Neutrophils % 5 % (0-10) 01/18/22 13: Lymphocytes % (Manual) 25 % (13-43) 01/18/22 13:27 Monocytes % (Manual) 5 % (4-9) 01/18/22 13:27 Plt Morphology Comment Normal (NORMAL) 01/18/22 13: RBC Morphology Normal (NORMAL) 01/18/22 13:[address] [facility] 01/18/22 16:05 ABG pH 7.300 (7.35-7.45) L 01/18/22 16:05 ABG pCO2 55.0 mmHg (35.0-45.0) H* 01/18/22 16:05 ABG pO2 121.0 mmHg (80.0-100.0) H 01/18/22 16:05 ABG HCO3 27.1 mmol/L (22-26) H 01/18/22 16:05 ABG O2 Saturation 98.0 % (90-100) 01/18/22 16:05 ABG Base Excess -0.2 mmol/L (-2.0-2.0) 01/18/22 16:05 Ezekiel Test N/a 01/18/22 16:05 A-a Gradient 523.0 mmHg 01/18/22 16:05 FiO2 100.0 01/18/22 16:05 Blood Gas Comments Pt john well eb curer acid drum 01/18/22 16:05 Sodium 141 mmol/L (136-145) 01/18/22 13:27 Corrected Sodium TNP 01/18/22 13:27 Potassium 3.7 mmol/L (3.5-5.1) 01/18/22 13:27 Chloride 99 mmol/L (98-107) 01/18/22 13:27 Carbon Dioxide 32.7 mmol/L (21-32) H 01/18/22 13:27 BUN 12 mg/dL (7-18) 01/18/22 13:27 Creatinine 0.93 mg/dL (0.55-1.02) 01/18/22 13:27 Est GFR (MDRD) Af Amer > 60 (>60) 01/18/22 13:27 Est GFR (MDRD) Non-Af > 60 (>60) 01/18/22 13:27 Glucose 103 mg/dL (65-99) H 01/18/22 13:27 POC Glucose (mg/dL) 72 mg/dL (65-99) 01/18/22 13:22 Calcium 10.6 mg/dL (8.5-10.1) H 01/18/22 13:27 Corrected Calcium 12.4 mg/dL (8.5-10.1) H 01/18/22 13:27 Total Bilirubin 0.40 mg/dL (0.2-1.0) 01/18/22 13:27 AST 29 Units/L (15-37) 01/18/22 13:27 ALT 9 Units/L (12-78) L 01/18/22 13:27 Alkaline Phosphatase 95 Units/L (46-116) 01/18/22 13:27 Creatine Kinase 26 Units/L (26-192) 01/18/22 13:27 CK-MB (CK-2) < 1.0 ng/mL (0-4.0) 01/18/22 13:27 CK/CKMB % Calc 3.9 % (<4) 01/18/22 13:27 Troponin I High Sens 17.9 ng/L (4.0-60.0) 01/18/22 13:27 Total Protein 5.5 g/dL (6.4-8.2) L 01/18/22 13:27 Albumin 1.7 g/dL (3.4-5.0) L 01/18/22 13:27 Globulin 3.8 g/dL (2.5-4.5) 01/18/22 13:27 Albumin/Globulin Ratio 0.4 Ratio (1.1-2.1) L 01/18/22 13:27 SARS CoV-2 RNA Rapid MICKEY Negative (NEGATIVE) 01/18/22 15:15 XRAY XRAY Interpreted by: Both X-ray Results: ET tube in good position, + haziness of left lungs (+ h/o lung ca) EKG Rate: 102 [place]: Normal Rhythm: ST Block: RBBB ST: Nonsp Opioid Opioid Risk Tool Age (Kaveh box if 16-45): No History of Preadolescent Sexual Abuse: No Total: 0 Total Score Risk Category: Low Risk Copyright: Raman WALTER predicting aberrant behaviors Diagnosis Discharge Problem: Cardiac arrest, Signs of return of spontaneous circulation ADDITIONAL NOTES Additional Notes Additional Notes: Critical care 35 minutes (initial management, discussion with family about code status, interpretation of labs/x-rays, discussion with her attending, management of BP after ROSC, orders for admission).
[2022-01-18 13:33] LABS: BASOPHILS # (AUTO) 0.1 X10^3/uL (0.0-0.1); BASOPHILS % (AUTO) 0.4 % (0.2-1.0); EOSINOPHILS # (AUTO) 0.1 x10^3/uL (0.0-0.2); EOSINOPHILS % (AUTO) 0.3 % (0.9-2.9); HEMATOCRIT 27.8 % (36.0-47.0); HEMOGLOBIN 8.8 g/dL (12.0-16.0); LYMPHOCYTES # (AUTO) 6.1 X10^3/uL (1.3-2.9); LYMPHOCYTES % (AUTO) 23.8 % (21.0-51.0); MEAN CORPUSCULAR HEMOGLOBIN 29.5 pg (27.0-34.0); MEAN CORPUSCULAR HGB CONC 31.5 g/dL (33.0-35.0); MEAN CORPUSCULAR VOLUME 93.7 fL (80.0-100.0); MEAN PLATELET VOLUME 8.3 fL (7.4-11.0); MONOCYTES # (AUTO) 1.1 x10^3/uL (0.3-0.8); MONOCYTES % (AUTO) 4.4 % (0.0-13.0); NEUTROPHILS # (AUTO) 18.2 x10^3/uL (2.2-4.8); NEUTROPHILS % (AUTO) 71.1 % (42.0-75.0); RED BLOOD COUNT 2.97 X10^6/uL (3.5-5.4); RED CELL DISTRIBUTION WIDTH 15.8 % (11.6-16.5); WHITE BLOOD COUNT 25.5 X10^3/uL (3.6-10.0)
--- NOTE | 2022-01-18 13:45 | RAD ---
HISTORYS/P CPR Relevant Clinical InformationSTUDYCHEST, 1 [id number]/11/2021FINDINGSThere is an endotracheal tube in satisfactory position projecting 4.6 centimeters from the rock. There is normal heart size. There is again seen fullness of the left hilum with increase radiopacity suspicious for tumor. There is a left lower lower radiopacity likely atelectasis,there is emphysematous changes for predominance in the upper lobes. There is a more lucent right lung. Trachea is near to the midlineIMPRESSIONEndotracheal tube in satisfactory positionLucent right lung in comparison with the left, PE is not excluded.. Follow-up with CTA chest is recommendedFullness of the left hilum with a left lower lobe radiopacity. Diffuse ground-glass radiopacities throughout the left lungElectronically signed by: Rakel Henry (Jan 18, 2022 13:43:58)
[2022-01-18 13:48] VITALS: BMI 23.5
[2022-01-18 13:50] LABS: BAND NEUTROPHILS % 5 % (0-10); PLATELET MORPHOLOGY COMMENT NORMAL (NORMAL)
[2022-01-18 13:57] LABS: ALANINE AMINOTRANSFERASE 9 Units/L (12-78); ALBUMIN 1.7 g/dL (3.4-5.0); ALKALINE PHOSPHATASE 95 Units/L (46-116); ASPARTATE AMINO TRANSFERASE 29 Units/L (15-37); BLOOD UREA NITROGEN 12 mg/dL (7-18); CALCIUM 10.6 mg/dL (8.5-10.1); CARBON DIOXIDE 32.7 mmol/L (21-32); CHLORIDE 99 mmol/L (98-107); CKMB % 3.9 % (<4); COR CA(FOR HYPOALB) 12.4 mg/dL (8.5-10.1); CREATINE KINASE 26 Units/L (26-192); CREATINE KINASE MB < 1.0 ng/mL (0-4.0); CREATININE 0.93 mg/dL (0.55-1.02); SODIUM 141 mmol/L (136-145); TOTAL PROTEIN 5.5 g/dL (6.4-8.2); eGFR NON BLACK RACES > 60 (>60)
[2022-01-18] MEDS ORDERED: ROCEPHIN VIAL 1 GRAM 1 G in NS 100 ML IV 100 ML IV ONE (14:04)
[2022-01-18] MEDS ORDERED: D5 NS 1,000 ML IV 1,000 ML IV ONE (14:14)
[2022-01-18] MEDS ORDERED: DOPAMINE IV PREMIX 400 MG/250 ML 400 MG/250 ML BAG IV ONE ×2 (14:14→14:48)
[2022-01-18] MEDS ORDERED: ROCEPHIN 1 GRAM IV PREMIX 1 G/50 ML IV.SOLN. IV ONE (14:15)
[2022-01-18] MEDS ORDERED: D5 NS 1,000 ML IV 1,000 ML IV SCH (15:00)
[2022-01-18] MEDS ORDERED: DOPAMINE IV PREMIX 400 MG/250 ML 400 MG/250 ML BAG IV PRN (15:18)
[2022-01-18 16:07] LABS: ABG BASE EXCESS -0.2 mmol/L (-2.0-2.0); ABG HCO3 27.1 mmol/L (22-26)
[2022-01-18] MEDS ORDERED: D5 1/2 NS 1,000 ML 1,000 ML IV SCH ×2 (17:59→20:00)
[2022-01-18 18:39] VITALS: BP 112/89
[2022-01-18] MEDS ORDERED: VERSED IV PREMIX IV PRN ×2 (19:23→19:26)
[2022-01-18] MEDS ORDERED: DUONEB 0.5 MG/3 MG (3 mL) NEB ONE (19:33)
[2022-01-18] MEDS ORDERED: PULMICORT NEB TX 0.5 MG NEB ONE (19:33)
[2022-01-18] MEDS ORDERED: LEVOPHED 8 MG/250 ML IV *PREMIX 8 MG/250 ML PLAST..BAG IV ONE (19:36)
[2022-01-18] MEDS ORDERED: LEVOPHED INJ (VIAL) 8 MG in D5W 250 ML IV 242 ML IV PRN (19:59)
[2022-01-18] MEDS ORDERED: VERSED 100 MG in NS 100 ML IV 80 ML IV PRN (20:00)
[2022-01-18] MEDS ORDERED: PULMICORT NEB TX 0.5 MG NEB SCH (21:00)
[2022-01-18] MEDS ORDERED: DUONEB 0.5 MG/3 MG (3 mL) NEB SCH (21:00)
[2022-01-18] MEDS ORDERED: LACRI-LUBE S.O.P. AFFEYE SCH (21:00)
[2022-01-18] MEDS ORDERED: DUKE'S Magic Mouthwash (nyst/dex/ben/doxyc) MT PRN (21:00)
[2022-01-18] MEDS ORDERED: MORPHINE SULFATE INJ 4 MG ONE (21:16)
[2022-01-18] MEDS ORDERED: MORPHINE SULFATE INJ 4 MG IVP ONE (21:20)
--- NOTE | 2022-01-19 14:58 | DR.H&P ---
H&P History & Physical for Day of: H&P Date: 01/18/22 Chief Complaint Chief Complaint: S/p cardiac arrest PEA Allergies Allergies Allergy/AdvReac Type Severity Reaction Status Date / Time No Known Drug Allergies Allergy Verified 12/23/21 14:35 History of Present Illness History of Present Illness: Pt is a 66 year old female past medical history of metastatic lung cancer, that presented to the ER via EMS in full cardiac arrest. Per ED noted, EMS was called out for difficulty in breathing and on their arrival was unresponsive and in cardiac arrest, PEA and asystole. Pt was in PEA on arrival. ACLS protocol was conducted with down time 50 minutes prior to ROSC. Patient's family informed of poor prognosis and agreed to limited DNR code status. Patient on mechanical ventilator and severe hypotension, was started on dopamine gtt. On exam pupils mid and fixed. Started patient on versed gtt. Few hours later patient required second vasopressor support to maintain blood pressure. Levophed gtt was ordered. Soon after patient's family desired to pursue comfort measure support. All vasopressor supports was discontinued and patient soon after. Time spent on clinical assessment, reviewing labs and imaging, decision making, and documentation greater than 45 minutes. Past Medical History Past Medical History: Arthritis, COPD, Depression, Diabetes, Dyslipidemia, GERD, Hypertension, [place] and Sleep Apnea Past Surgical History Surgical History: Hysterectomy and Ortho Surgery Family History Family Medical History: Diabetes Mellitus, Cancer and Hypertension Social History Does patient currently use any type of tobacco product: Yes Have you used tobacco products in the last 12 months: Yes Type of Tobacco Use: Cigarettes Does any household member use tobacco: Yes Alcohol Use: None Drug Use: None Medications Home Medications: No Known Drug Allergies Allergy (Verified 12/23/21 14:35) Labs Result Diagrams: 01/18/22 13:27 01/18/22 18:53 Labs: Laboratory WBC 25.5 X10^3/uL (3.6-10.0) H 01/18/22 13:27 RBC 2.97 X10^6/uL (3.5-5.4) L 01/18/22 13:27 Hgb 8.8 g/dL (12.0-16.0) L 01/18/22 13:27 Hct 27.8 % (36.0-47.0) L 01/18/22 13:27 MCV 93.7 fL (80.0-100.0) 01/18/22 13: MCH 29.5 pg (27.0-34.0) 01/18/22 13: MCHC 31.5 g/dL (33.0-35.0) L 01/18/22 13: RDW 15.8 % (11.6-16.5) 01/18/22 13: Plt Count 134 X10^3/uL (150.0-450.0) L 01/18/22 13: Plt Count Comment Decreased (ADEQUATE) A 01/18/22 13: MPV 8.3 fL (7.4-11.0) 01/18/22 13: Neut % (Auto) 71.1 % (42.0-75.0) 01/18/22 13: Lymph % (Auto) 23.8 % (21.0-51.0) 01/18/22 13: Day % (Auto) 4.4 % (0.0-13.0) 01/18/22 13: Eos % (Auto) 0.3 % (0.9-2.9) L 01/18/22 13: Baso % (Auto) 0.4 % (0.2-1.0) 01/18/22 13: Neut # (Auto) 18.2 x10^3/uL (2.2-4.8) H 01/18/22 13:27 Lymph # (Auto) 6.1 X10^3/uL (1.3-2.9) H 01/18/22 13:27 Day # (Auto) 1.1 x10^3/uL (0.3-0.8) H 01/18/22 13: Eos # (Auto) 0.1 x10^3/uL (0.0-0.2) 01/18/22 13: Baso # (Auto) 0.1 X10^3/uL (0.0-0.1) 01/18/22 13: Absolute Nucleated RBC 0.2 /100WBC 01/18/22 13: Total Counted 100 01/18/22 13: Neutrophils % (Manual) 65 % (39-76) 01/18/22 13: Band Neutrophils % 5 % (0-10) 01/18/22 13:27 Lymphocytes % (Manual) 25 % (13-43) 01/18/22 13:27 Monocytes % (Manual) 5 % (4-9) 01/18/22 13:27 Plt Morphology Comment Normal (NORMAL) 01/18/22 13:27 RBC Morphology Normal (NORMAL) 01/18/22 13:27 Sample Site [facility]bra 01/18/22 16:05 ABG pH 7.300 (7.35-7.45) L 01/18/22 16:05 ABG pCO2 55.0 mmHg (35.0-45.0) H* 01/18/22 16:05 ABG pO2 121.0 mmHg (80.0-100.0) H 01/18/22 16:05 ABG HCO3 27.1 mmol/L (22-26) H 01/18/22 16:05 ABG O2 Saturation 98.0 % (90-100) 01/18/22 16:05 ABG Base Excess -0.2 mmol/L (-2.0-2.0) 01/18/22 16:05 Ezekiel Test N/a 01/18/22 16:05 A-a Gradient 523.0 mmHg 01/18/22 16:05 FiO2 100.0 01/18/22 16:05 Blood Gas Comments Pt john well eb buckle sorter 01/18/22 16:05 Sodium 141 mmol/L (136-145) 01/18/22 13:27 Corrected Sodium TNP 01/18/22 13:27 Potassium 3.7 mmol/L (3.5-5.1) 01/18/22 13:27 Chloride 99 mmol/L (98-107) 01/18/22 13:27 Carbon Dioxide 32.7 mmol/L (21-32) H 01/18/22 13:27 BUN 12 mg/dL (7-18) 01/18/22 13:27 Creatinine 0.93 mg/dL (0.55-1.02) 01/18/22 13:27 Est GFR (MDRD) Af Amer > 60 (>60) 01/18/22 13:27 Est GFR (MDRD) Non-Af > 60 (>60) 01/18/22 13:27 Glucose 69 mg/dL (65-99) 01/18/22 18:53 POC Glucose (mg/dL) 59 mg/dL (65-99) L 01/18/22 19:56 Calcium 10.6 mg/dL (8.5-10.1) H 01/18/22 13:27 Corrected Calcium 12.4 mg/dL (8.5-10.1) H 01/18/22 13:27 Total Bilirubin 0.40 mg/dL (0.2-1.0) 01/18/22 13:27 AST 29 Units/L (15-37) 01/18/22 13:27 ALT 9 Units/L (12-78) L 01/18/22 13:27 Alkaline Phosphatase 95 Units/L (46-116) 01/18/22 13:27 Creatine Kinase Cancelled 01/18/22 18:53 CK-MB (CK-2) Cancelled 01/18/22 18:53 CK/CKMB % Calc Cancelled 01/18/22 18:53 Troponin I High Sens Cancelled 01/18/22 18:53 Total Protein 5.5 g/dL (6.4-8.2) L 01/18/22 13:27 Albumin 1.7 g/dL (3.4-5.0) L 01/18/22 13:27 Globulin 3.8 g/dL (2.5-4.5) 01/18/22 13:27 Albumin/Globulin Ratio 0.4 Ratio (1.1-2.1) L 01/18/22 13:27 SARS CoV-2 RNA Rapid MICKEY Negative (NEGATIVE) 01/18/22 15:15 Review of Systems Constitutional: Other (intubated, sedated ) Eyes: Other ENT: Other Respiratory: Other Cardiovascular: Other Gastrointestinal: Other Genitourinary: Other Musculoskeletal: Other Skin: Other Neurological: Other Physical Exam Vital Signs: Temperature 98.5 F Pulse Rate [Apical] 126 Pulse Rate 131 Respiratory Rate 33 Blood Pressure [Right Arm] 112/89 Blood Pressure [Left Arm] 118/61 Blood Pressure 91/57 O2 Sat by Pulse Oximetry 83 Oriented: Unable to test Eyes: Other (fixed, midline) Ear: Normal Nose: Normal Respiratory: Diminished Throughout Cardiovascular: Tachycardia Auscultation: Bowel Sounds: Decreased Skin: Decreased [place] Psychiatric: Other Speech Pattern: Artificially Ventilated Assessment/Plan (1) Cardiac arrest: Status: Acute (2) Signs of return of spontaneous circulation: Status: Acute Review H&P Reviewed: Yes Patient was examined?: Yes
== END 2022-01-18 22:45 | disposition expired | DRG 298 ==
LOC: ER 13:14 → ICU 17:33
PROVIDERS: ADMIT Family Medicine; ATTEND Family Medicine
DX: Z20.822 Contact with and (suspected) exposure to COVID-19; R94.31 Abnormal electrocardiogram [ECG] [EKG]; Z66 Do not resuscitate; I95.89 Other hypotension; R41.82 Altered mental status, unspecified; I46.9 Cardiac arrest, cause unspecified